=== PATIENT | female | born 1950 | race African-American/Black ===

== ENCOUNTER → 2017-02-09 | Outpatient (CLI) | payer MEDICARE, OTHER ==
[~2017-02-09] MED LIST: ANUSOL HC1 SUPP RECTAL; ASACOL HD800 MG ORAL; ASPIRIN500 MG ORAL; CANAASA1000 MG RECTAL; DILAUDID2 MG ORAL; DILAUDID4 MG ORAL; DILAUDID8 MG PO; DOK100 M1 ORAL; DOK100 M1 PO; IBUPROFEN200 MG ORAL; KLONOPIN0.5 MG ORAL; LACTULOSE20 GM/301 ORAL; METFORMIN HCL1000 M1 ORAL; METFORMIN HCL850 M1 ORAL; METHADONE HCL10 MG ORAL; METHADONE HCL10 MG PO; MIRALAX17 GM ORAL; MIRTAZAPINE15 MG ORAL; MS CONTIN30 MG ORAL; MSL400TEC ORAL; MULTIVITAMINS1 EAC2 ORAL; Mesalamine ORAL; NEURONTIN100 MG ORAL; NEURONTIN300 MG ORAL; NORCO 5-325 TA1 EACH ORAL; OMEGA-31000 M1 PO; OMEPRAZOLE20 M2 ORAL; PREDNISONE20 MG ORAL; PROTONIX40 MG ORAL; PURINETHOL50 MG ORAL; QUETIAPINE FUM100 MG ORAL; QUETIAPINE FUM200 MG ORAL; RESTORIL15 MG ORAL; SENOKOT8.6 MG ORAL; SEROQUEL XR200 MG ORAL; SEROQUEL100 MG ORAL; TYLENOL EXTRA500 MG ORAL; TYLENOL650 MG/20. ORAL; ULTRAM50 MG ORAL; UNOBMED
--- NOTE | 2017-02-09 16:14 | Diagnostic Imaging Report ---
Indications: Chronic severe low back and bilateral hip pain, worsening over the last 3 weeks Technique: Coronal and axial T1-weighted fast spin-echo and STIR sequences of the pelvis performed. Patient could not tolerate additional standard imaging sequences of the hips due to pain. Findings: Comparison: Bilateral hip radiographs 06/04/15 Bilateral hip joints again demonstrate severe circumferential narrowing with marginal osteophyte formation. Small right hip joint effusion is present. Both humeral heads demonstrate mild contour deformity, subchondral cyst formation, more prominent on the right. Diffuse marrow signal change is present throughout the right femoral head, neck, intertrochanteric region, heterogeneously hypointense on T1-weighted images and hyperintense on STIR images. Similar signal changes present in the opposing portions of right acetabulum. Small subchondral cysts are also present in both acetabula. Multilevel disc space narrowing with marginal osteophyte formation, subjacent degenerative marrow signal change in lumbar spine. No additional foci of marrow signal change demonstrated. Remaining soft tissue anatomy unremarkable. Urinary bladder distended. IMPRESSION: Severe bilateral hip arthropathy with prominent degenerative components. Circumferential narrowing suggests underlying inflammatory arthritis. Associated effusion, marrow edema on the right suggests acute flare of inflammatory arthritis versus less likely septic arthritis. Changes are atypical for avascular necrosis. Lumbar degenerative spondylosis.
--- NOTE | 2017-02-10 09:06 | Diagnostic Imaging Report ---
Indications: Chronic severe low back and bilateral hip pain, worsening over the last 3 weeks Technique: Sagittal STIR, sagittal and axial T1 weighted and T2 weighted fast spin echo sequences of the lumbar spine were performed without IV gadolinium administration. Findings: Comparison: None The L1-2 disc is normal in height and signal. No significant annular bulge/protrusion or marginal osteophyte formation. Facet joints and ligamenta flava are unremarkable. Spinal canal, lateral recesses and neural foramina are normal in caliber. The L2-3 disc has undergone further decrease in height and signal. Circumferential annular bulge again noted, indenting the ventral surface of thecal sac, mildly increased in prominence. Facet joints and ligamenta flava remain mildly hypertrophied.. Spinal canalnarrowing has mildly progressed, now 8-9 mm AP diameter. Mild narrowing of lateral recesses and neural foramina, left greater than right, mildly increased. The L3-4 disc remains severely decreased in height and signal with circumferential annular bulge and marginal osteophyte formation. Adjacent degenerative marrow signal change now T1 and T2 hyperintense, STIR hypointense.. . Facet joints and ligamenta flava min mildly hypertrophied.. Spinal canalnarrowed to 10 mm AP diameter unchanged. Mild narrowing of lateral recesses and neural foramina unchanged.. The L4-L5 disc space narrowing has mildly progressed, now mildly decreased T2 signal. Mild circumferential annular bulge unchanged.. Facet joints and ligamenta flava remain mildly hypertrophied.. Spinal canalremains normal in caliber. Mild lateral recess and neural foraminal narrowing, left greater than right, has mildly progressed.. The L5-S1 disc remains normal in height but has decreased in T2 signal. Mild posterior annular bulge unchanged.. Facet joints and ligamenta flava remain mildly hypertrophied.. Spinal canalremains normal in caliber. Mild lateral recess and neural foraminal narrowing unchanged.. Spinal cord ends at T12-L1. Conus medullaris, cauda equina, remainder of thecal sac contents intrinsically unremarkable. No intradural or extradural masses or fluid collections are demonstrated. The lumbar vertebrae are normal in configuration and marrow signal characteristics , aside from degenerative changes described above. No fracture, lytic destruction, or other acute process is demonstrated. Paraspinous soft tissues are unremarkable. IMPRESSION: Multilevel degenerative disc disease, facet and ligamentous hypertrophy as described in detail level by level above. Mild progression of disease at L2-3 and L4-5.
== END | disposition home or self-care (01) ==
LOC: MRI 09:52
DX: M54.5 Low back pain (principal); M47.896 Other spondylosis, lumbar region; M16.0 Bilateral primary osteoarthritis of hip; G89.29 Other chronic pain; M51.36 Other intervertebral disc degeneration, lumbar region
CPT/HCPCS: 72148; 72195

== ENCOUNTER 2017-03-08 10:04 | Outpatient (CLI) | payer MEDICARE, OTHER ==
--- NOTE | 2017-03-09 13:48 | Diagnostic Imaging Report ---
Indication: SCREEN Technique: Bilateral Craniocaudal and mediolateral oblique views were obtained. Comparison: 02/25/2015. Also outside studies from [facility] dated 04/26/2013 and 04/20/2013 Findings: The breasts are extremely dense, which decreases the sensitivity of mammography. No parenchymal asymmetry nor architectural distortion. There are benign calcifications on the left. No dominant masses nor suspicious clustered microcalcifications. No skin thickening nor nipple retraction. No axillary adenopathy. No significant interim change. Impression: No mammographic evidence of malignancy. Routine annual rescreening recommended. BI-RADS category 2-benign. Breast density BI-RADS type D-extremely dense breasts, which limits the sensitivity of mammography
== END 2017-03-08 12:04 | disposition home or self-care (01) ==
LOC: MAMMO 10:04
DX: Z12.31 Encounter for screening mammogram for malignant neoplasm of breast (principal)
CPT/HCPCS: 77067

== ENCOUNTER 2018-02-14 09:54 | Inpatient (IN) | payer MEDICARE, OTHER ==
[~2018-02-14] VITALS: Ht 170.2 cm; Wt 52.2 kg
[2018-02-14 10:10] VITALS: BP 110/70
--- NOTE | 2018-02-14 10:11 | Emergency Room Report ---
History of Present Illness General Chief Complaint: Multiple Trauma/Fall Source: Patient, EMS Present Illness HPI Patient is a 68-year-old female who presented after increased generalized weakness and falls. She reports having increased pain to her neck. She reports falling yesterday. Patient had been having increasing difficulty with ambulation and states she's not been able to ambulate for the past few days. Patient had prior history of inflammatory bowel disease as well as chronic pain. She reports having pain to both knees and her elbows after falling. Allergies: Coded Allergies: AMOXICILLIN (Verified Allergy, Unknown, RASH, 02/10/09) CODEINE (Verified Allergy, Unknown, RASH, 02/10/09) DIPHENHYDRAMINE (Verified Allergy, Unknown, 02/10/09) OXYCODONE (Verified Allergy, Unknown, RASH, 02/10/09) TETRACYCLINE (Verified Allergy, Unknown, 02/10/09) Patient History Past Medical History: see triage record Now: No Reviewed Nursing Documentation: PMH: Agreed; PSxH: Agreed Nursing Documentation-PMH Hx Cardiac Problems: No Hx Hypertension: No Hx Pacemaker: No Hx Asthma: No Hx COPD: No Hx Diabetes: Yes Hx Cancer: No Hx Gastrointestinal Problems: Yes - Ulcerative cilitis Hx Dialysis: No Hx Neurological Problems: Yes Hx Cerebrovascular Accident: No Hx Seizures: No Hx Peripheral Neuropathy: Yes - BLE Review of Systems All Other Systems: negative except mentioned in HPI Physical Exam Vital Signs Date Time Temp Pulse Resp B/P (MAP) Pulse Ox O2 Delivery O2 Flow Rate FiO2 02/14/18 10:00 97.8 116 16 110/70 97 Room Air 97.9 Sp02 EP Interpretation: reviewed, normal General Appearance: alert, cachetic, Chronically Ill Head: atraumatic ENT: normal ENT inspection, hearing grossly normal, normal voice Neck: normal inspection, full range of motion, supple, no bony tend Respiratory: normal inspection, lungs clear, normal breath sounds, no respiratory distress, no retraction, no wheezing Cardiovascular #1: regular rate, rhythm, no edema Gastrointestinal: normal inspection, normal bowel sounds, non tender, soft, no guarding, no hernia Genitourinary: no CVA tenderness Musculoskeletal: normal inspection, back normal, normal range of motion Neurologic: normal inspection, alert, oriented x3, responsive, community organization director III-XII nml as tested, speech normal, motor weakness Psychiatric: normal inspection, judgement/insight normal, mood/affect normal Skin: normal inspection, normal color, no rash Medical Decision Making Diagnostic Impression: Primary Impression: Weakness Additional Impressions: Dehydration Failure to thrive Multiple abrasions ER Course Patient presented for generalized weakness. Differential diagnosis included was not limited to anemia, urinary tract infection, electrolyte abnormality, hypothyroidism, myocardial infarction, myasthenia gravis, dehydration, among others. Because of complexity of patient's case laboratory testing and imaging studies were ordered. Laboratory testing was noted to have increased white blood count as well as evident of dehydration with elevated BUN and creatinine. Liver function tests were also abnormal. Patient was discussed with Dr. Ervin Davis for inpatient management due to covering physician. CT head and cervical spine showed no evidence of acute injury or hemorrage. Labs Test 02/14/18 10:15 02/14/18 10:25 02/14/18 11:05 White Blood Count 11.6 K/UL (4.8-10.8) Red Blood Count 4.14 M/UL (4.20-5.40) Hemoglobin 10.5 G/DL (12.0-16.0) Hematocrit 33.1 % (37.0-47.0) Mean Corpuscular Volume 80 FL (80-99) Mean Corpuscular Hemoglobin 25.3 PG (27.0-31.0) Mean Corpuscular Hemoglobin Concent 31.5 G/DL (32.0-36.0) Red Cell Distribution Width 15.3 % (11.6-14.8) Platelet Count 245 K/UL (150-450) Mean Platelet Volume 10.2 FL (6.5-10.1) Neutrophils (%) (Auto) 84.7 % (45.0-75.0) Lymphocytes (%) (Auto) 7.4 % (20.0-45.0) Monocytes (%) (Auto) 7.4 % (1.0-10.0) Eosinophils (%) (Auto) 0.0 % (0.0-3.0) Basophils (%) (Auto) 0.4 % (0.0-2.0) Prothrombin Time 10.2 SEC (9.30-11.50) Prothromb Time International Ratio 1.0 (0.9-1.1) Activated Partial Thromboplast Time 28 SEC (23-33) Sodium Level 138 MMOL/L (136-145) Potassium Level 4.0 MMOL/L (3.5-5.1) Chloride Level 108 MMOL/L (98-107) Carbon Dioxide Level 16 MMOL/L (21-32) Anion Gap 14 mmol/L (5-15) Blood Urea Nitrogen 67 mg/dL (7-18) Creatinine 1.6 MG/DL (0.55-1.30) Estimat Glomerular Filtration Rate 38.8 mL/min (>60) Glucose Level 169 MG/DL (74-106) Calcium Level 9.3 MG/DL (8.5-10.1) Total Bilirubin 0.3 MG/DL (0.2-1.0) Aspartate Amino Transf (AST/SGOT) 272 U/L (15-37) Alanine Aminotransferase (ALT/SGPT) 320 U/L (12-78) Alkaline Phosphatase 90 U/L (46-116) Troponin I 0.009 ng/mL (0.000-0.056) C-Reactive Protein, Quantitative 18.6 mg/dL (0.00-0.90) Total Protein 7.9 G/DL (6.4-8.2) Albumin 3.1 G/DL (3.4-5.0) Globulin 4.8 g/dL Albumin/Globulin Ratio 0.6 (1.0-2.7) Lipase 55 U/L (73-393) Thyroid Stimulating Hormone (TSH) 1.593 uiU/mL (0.358-3.740) Serum Alcohol < 3 mg/dL Urine Color Yellow Urine Appearance Slightly cloudy Urine pH 6 (4.5-8.0) Urine Specific [place] 1.020 (1.005-1.035) Urine Protein 2+ (NEGATIVE) Urine Glucose (UA) Negative (NEGATIVE) Urine Ketones Negative (NEGATIVE) Urine Occult Blood 5+ (NEGATIVE) Urine Nitrite Negative (NEGATIVE) Urine Bilirubin 1+ (NEGATIVE) Urine Ictotest Negative Urine Urobilinogen Normal MG/DL (0.0-1.0) Urine Leukocyte Esterase 1+ (NEGATIVE) Urine RBC 2-4 /HPF (0 - 2) Urine WBC 2-4 /HPF (0 - 2) Urine Squamous Epithelial Cells Few /LPF (NONE/OCC) Urine Amorphous Sediment Many /LPF (NONE) Urine Bacteria Few /HPF (NONE) Urine Opiates Screen Negative (NEGATIVE) Urine Barbiturates Screen Negative (NEGATIVE) Phencyclidine (PCP) Screen Negative (NEGATIVE) Urine Amphetamines Screen Negative (NEGATIVE) Urine Benzodiazepines Screen Negative (NEGATIVE) Urine Cocaine Screen Negative (NEGATIVE) Urine Marijuana (THC) Screen Negative (NEGATIVE) Last Vital Signs Date Time Temp Pulse Resp B/P (MAP) Pulse Ox O2 Delivery O2 Flow Rate FiO2 02/14/18 10:00 97.8 116 16 110/70 97 Room Air 97.9 Status: unchanged Disposition: ADMITTED INPATIENT Condition: Serious Anuel Spann MD Feb 14, 2018 10:11
[2018-02-14] MEDS ORDERED: Tetanus/Diptheria/Pertussis Vaccine 0.5ml Syr IM ONE (10:15)
[2018-02-14] MEDS ORDERED: Bacitracin Oint UD TOPIC ONE (10:15)
[2018-02-14 10:40] LABS: BASOPHILS % (AUTO) 0.4 % (0.0-2.0); HEMATOCRIT 33.1 % (37.0-47.0); HEMOGLOBIN 10.5 G/DL (12.0-16.0); LYMPHOCYTES % (AUTO) 7.4 % (20.0-45.0); MEAN CORPUSCULAR VOLUME 80 FL (80-99); MONOCYTES % (AUTO) 7.4 % (1.0-10.0); NEUTROPHILS % (AUTO) 84.7 % (45.0-75.0); PLATELET COUNT 245 K/UL (150-450); RED BLOOD COUNT 4.14 M/UL (4.20-5.40); RED CELL DISTRIBUTION WIDTH 15.3 % (11.6-14.8); WHITE BLOOD COUNT 11.6 K/UL (4.8-10.8)
[2018-02-14 11:01] LABS: ANION GAP 14 mmol/L (5-15); BLOOD UREA NITROGEN 67 mg/dL (7-18); CALCIUM 9.3 MG/DL (8.5-10.1); CARBON DIOXIDE 16 MMOL/L (21-32); CHLORIDE 108 MMOL/L (98-107); CREATININE 1.6 MG/DL (0.55-1.30); SODIUM 138 MMOL/L (136-145)
[2018-02-14 11:14] LABS: ALANINE AMINOTRANSFERASE 320 U/L (12-78); ALBUMIN 3.1 G/DL (3.4-5.0); ALBUMIN/GLOBULIN RATIO 0.6 (1.0-2.7); ALKALINE PHOSPHATASE 90 U/L (46-116); ASPARTATE AMINO TRANSFERASE 272 U/L (15-37); BILIRUBIN,TOTAL 0.3 MG/DL (0.2-1.0)
--- NOTE | 2018-02-14 11:28 | Diagnostic Imaging Report ---
Indication: Headache Technique: Contiguous 5 mm thick transaxial imaging of the head obtained in a Siemens Sensation [address] scanner. Soft tissue and bone windows generated. Automatic Exposure Control was utilized. Total Dose length Product (DLP): 1503.[address] Dose Index Volume (CTDIvol): 70.38,8 mGy Comparison: 06/15/2016 Findings: The size and configuration of the cortical sulci, basal cisterns, and ventricles are within normal limits for age. There is no mass effect, midline shift, or edema identified. There is no evidence of acute hemorrhage or abnormal intra-axial or extra-axial fluid collections. The bones and soft tissues are unremarkable. Impression: No mass effect, edema or acute bleed. The CT scanner at [facility] is accredited by the [employer] and the scans are performed using dose optimization techniques as appropriate to a performed exam including Automatic Exposure control.
--- NOTE | 2018-02-14 11:30 | Diagnostic Imaging Report ---
Indication: Neck pain. Technique: Continuous helical imaging of the cervical spine was obtained transaxially from the skull base to the upper thoracic spine. 2-D coronal and sagittal reformatted images were obtained. Automatic Exposure Control was utilized. Total Dose length Product (DLP): Refer to CT head mGycm CT Dose Index Volume (CTDIvol): Refer to CT head mGy Comparison: None Findings: There is no evidence of an acute fracture or malalignment. Atlantoaxial alignment appears normal. Height and configuration of the vertebral bodies and intervertebral discs are within normal limits. Uncovertebral joints and facets are unremarkable. There is no soft tissue swelling. There is mild partial opacification of the mastoids bilaterally. Impression: Negative cervical spine CT Mastoiditis The CT scanner at [facility] is accredited by the [employer] and the scans are performed using dose optimization techniques as appropriate to a performed exam including Automatic Exposure control.
--- NOTE | 2018-02-14 11:40 | Diagnostic Imaging Report ---
Indication: Chest pain Comparison: 06/15/2016 A single view chest radiograph was obtained. Findings: Cardiomediastinal appearance is within normal limits for age. Pulmonary vascularity is appropriate. The diaphragmatic contour is smooth and costophrenic angles are sharp. No pleural effusions are identified. The bones are unremarkable. Impression: No acute findings
[2018-02-14 11:41] LABS: APPEARANCE,URINE SLIGHTLY CLOUDY; BILIRUBIN, URINE 1+ (NEGATIVE); COLOR,URINE YELLOW; GLUCOSE, URINE (UA) NEGATIVE (NEGATIVE); KETONES,URINE NEGATIVE (NEGATIVE); LEUKOCYTE ESTERASE ,URINE 1+ (NEGATIVE); NITRITE,URINE NEGATIVE (NEGATIVE); PH,URINE 6 (4.5-8.0); PROTEIN,URINE 2+ (NEGATIVE); UROBILINOGEN,URINE NORMAL MG/DL (0.0-1.0)
[2018-02-14 12:30] VITALS: BP 117/67
[2018-02-14] MEDS ORDERED: XTAMPZA PO (12:59)
[2018-02-14 14:10] VITALS: BP 112/73
[2018-02-14] MEDS ORDERED: Morphine Sulfate 2mg/ml Inj IVP ONE (15:15)
[2018-02-14] MEDS ORDERED: Morphine Sulfate 2mg/ml Inj IVP PRN (17:45)
[2018-02-14] MEDS ORDERED: Lactulose 20gm/30ml UDC ORAL PRN (17:45)
[2018-02-14] MEDS: clonazePAM 0.5mg tab ORAL SCH (20:43)
[2018-02-14] MEDS: MS Contin 15mg tab ORAL SCH ×2 (20:44→20:52)
[2018-02-14] MEDS: Heparin 5000 units/ml inj SUBQ SCH ×2 (20:48→21:00)
[2018-02-15 07:51] LABS: ALANINE AMINOTRANSFERASE 293 U/L (12-78); ALBUMIN 3.1 G/DL (3.4-5.0); ALBUMIN/GLOBULIN RATIO 0.6 (1.0-2.7); ALKALINE PHOSPHATASE 97 U/L (46-116); ANION GAP 11 mmol/L (5-15); ASPARTATE AMINO TRANSFERASE 185 U/L (15-37); BILIRUBIN,TOTAL 0.4 MG/DL (0.2-1.0); BLOOD UREA NITROGEN 46 mg/dL (7-18); CALCIUM 9.7 MG/DL (8.5-10.1); CARBON DIOXIDE 20 MMOL/L (21-32); CHLORIDE 108 MMOL/L (98-107); CREATININE 1.1 MG/DL (0.55-1.30); SODIUM 139 MMOL/L (136-145)
[2018-02-15 08:00] VITALS: BP 114/64
[2018-02-15] MEDS: MS Contin 15mg tab ORAL SCH ×3 (09:00→20:37)
[2018-02-15] MEDS: Docusate 100mg cap ORAL SCH (09:10)
[2018-02-15] MEDS: clonazePAM 0.5mg tab ORAL SCH ×2 (09:11→20:37)
[2018-02-15] MEDS: Heparin 5000 units/ml inj SUBQ SCH ×2 (09:16→20:39)
--- NOTE | 2018-02-15 10:30 | History and Physical Report ---
DATE OF ADMISSION: 02/14/2018 REASON FOR ADMISSION: Multiple falls. HISTORY OF PRESENT ILLNESS: This is a 68-year-old female with chronic pain, generalized weakness, and underlying depression. The patient has multiple physicians that she sees. The patient does visit my office on a regular basis. The patient presents with increasing pain, recurrent falls, but no clear injury. The patient has difficulty with ambulation, although she does have a wheelchair. The patient does have pain diffusely. She is under the care of pain management. The patient now admitted for weakness, dehydration, failure to thrive, and multiple falls. PAST MEDICAL HISTORY: Notable for COPD, diabetes, ulcerative colitis, chronic pain syndrome, chronic neuropathy, history of psychiatric disorder, history of depression, opioid dependence, and insomnia. MEDICATIONS: Reviewed. ALLERGIES: Reviewed. SOCIAL HISTORY: Nonsmoker and nondrinker. The patient is retired and disabled. REVIEW OF SYSTEMS: Notable for diabetic neuropathy, depression, inflammatory bowel disease, psychiatric disorder, narcotic dependence, history of hypertension, and history of GI bleed remote. PHYSICAL EXAMINATION: GENERAL: A well-developed female, comfortable at present. VITAL SIGNS: Blood pressure 112/73, temperature 98, respiratory rate 15, and saturations 99%. HEENT: Negative. Extraocular movements are grossly intact. Oropharynx is moist. NECK: Supple. No adenopathy. LUNGS: Moderate breath sounds. No rhonchi. No wheezes. CARDIAC: Normal S1, S2 present. Regular rate and rhythm. Soft systolic murmur at left parasternal border. ABDOMEN: Soft, nontender, and nondistended. EXTREMITIES: No cyanosis, clubbing, or edema. Multiple abrasions noted. NEUROLOGIC: Grossly nonfocal. Fairly diffusely alert, slightly apprehensive. LABORATORY DATA: Reviewed. White count 8.6, hemoglobin 10, hematocrit 33, and platelets of 245. Chemistries noted and reviewed. Bicarbonate is 20, BUN 46, creatinine 1.1. Previously 67, 1.6. Liver enzymes are elevated. Albumin is 3.4. IMPRESSION: 1. Transaminitis. 2. Acute on chronic renal insufficiency. 3. Mild protein-calorie malnutrition. 4. Multiple falls. 5. Mild anemia. 6. Mild leukocytosis. 7. Hematuria. 8. Chronic pain syndrome. 9. Chronic opioid dependence. 10. Psychiatric disorder. RECOMMENDATION: Pain management. Resume home medication. Obtain pain evaluation. Obtain GI evaluation. Obtain psychiatric evaluation and renal evaluation. Hydrate clinically. Resume medication. Resume pain control and follow clinically for further changes and interventions and discharge once the patient is stable and improved. Bennett Siddiqui M.D. DR: CAREY JOB#: [id number] CC:
[2018-02-15 12:00] VITALS: BP 111/81
[2018-02-15 16:00] VITALS: BP 113/76
[2018-02-15] MEDS ORDERED: Isovue-300 100ml vial INJ PRN (17:00)
[2018-02-15 20:00] VITALS: BP 120/78
[2018-02-15 23:45] VITALS: BP 110/68
--- NOTE | 2018-02-16 00:37 | Cardiology Report ---
APPROVED REPORT EKG Measurement Heart [id number] Sinus tachycardia Possible Left atrial enlargement Right bundle branch block Abnormal ECG
[2018-02-16 04:00] VITALS: BP 109/69
--- NOTE | 2018-02-16 06:15 | Consultation ---
DATE OF CONSULTATION: 02/15/2018 NOTE: POOR AUDIO GASTROENTEROLOGY CONSULTATION CONSULTING PHYSICIAN: Sara Hebert M.D. CHIEF COMPLAINT: I was asked to see this patient by Dr. Bennett Siddiqui for evaluation of abdominal issues. HISTORY OF PRESENT ILLNESS: The patient is a 68-year-old woman with multiple medical problems, who was admitted to the hospital. She is somewhat of a poor historian and offers very little detailed history. She came to the hospital, but she felt weak overall. Review of her records show multiple references to inflammatory bowel disease including both ulcerative colitis as well as Crohn disease. However, she is not really on her regular medication nor has she had any regular workup. According to her records, she has had a colonoscopy in June 2014, and there were no significant findings on the pathology report that I can find. In the meantime, the patient appears to have been at some point on Asacol, but at this time she is off of all inflammatory bowel disease medications. She also at the same time used to be on laxatives for constipation. The patient denies any history of liver disease or alcoholism, but she also does have abnormal liver tests of unclear etiology. She denies any history of proctitis or postprandial pain. The patient does have a past history of drug dependence as recorded in her medical records. She appears to have been somewhat dehydrated on admission with elevated BUN and creatinine, but these have both since calmed down. PAST MEDICAL HISTORY: History of chronic pain syndrome, drug dependence, possible history of inflammatory bowel disease, although the details are vague and unclear and the patient is off medications, and failure to thrive. ALLERGIES: Reviewed and remarkable for amoxicillin, codeine, diphenhydramine, oxycodone, and tetracycline. FAMILY HISTORY: Negative and noncontributory. SOCIAL HISTORY: The patient lives in [facility]. She does not smoke or drink alcohol. REVIEW OF SYSTEMS: Otherwise negative. PHYSICAL EXAMINATION: GENERAL: Thin woman, seen in her room, in no distress. HEENT: Normocephalic and atraumatic. Sclerae anicteric. Oropharynx clear. NECK: Supple. CHEST: Clear to auscultation. CARDIOVASCULAR: Revealed a regular rate. ABDOMEN: Soft. Flat. Good bowel sounds. There is no organomegaly. There is some mild tenderness to palpation in the pelvis area. The patient had an old horizontal scar in that area, but she could not recall what kind of surgery she has had. EXTREMITIES: Revealed no edema. LABORATORY AND DIAGNOSTIC DATA: Laboratory data were noted. ASSESSMENT: This patient has two gastrointestinal issues. The first, she does have an abnormal liver tests, which are perhaps on the decline and the etiology is unclear. Hepatitis markers have been ordered, which is appropriate. I would also check her CPK to rule out rhabdomyolysis. In addition, the CT imaging of the abdomen were done with IV contrast to evaluate the liver for any pathological reasons. The patient's creatinine is now normalized and contrast should be safe. Further recommendations will be based on the findings of the above preliminary workup. The second issue is her vague history of inflammatory bowel disease. I am not so certain of her nature of inflammatory bowel disease since the patient is off medications and having regular bowel movements. I have offered an endoscopy and colonoscopy for the patient to evaluate her whole GI tract. However, she declined to have this procedure at this time, as the patient feels weak. She wants to remain off the medications for this condition and to reconsider as an outpatient at a later date when she feels stronger. RECOMMENDATIONS: 1. Follow laboratory parameters and exam. 2. Check CT scan. 3. Check hepatitis serologies. 4. Further rec after CT scan of abdomen and pelvis. 5. Out of bed and physical therapy. 6. Push oral intake. Thank you for asking me to participate in the care of this patient. Sara Hebert M.D. DR: CARMEN JOB#: [id number] CC: ROXANNA
--- NOTE | 2018-02-16 07:58 | General Progress Note ---
Assessment/Plan Assessment/Plan (1) Narcotic dependence (2) Crohn's disease (3) Rectal and abdominal pain (4) Lumbar radiculopathy (5) Lumbar spondylosis (6) Depression Pt will be changed on Morphine IV to 2mg Q4H PRN severe pain and Morphine ER to 30mg Q12H scheduled. We recommend pt to be evaluated by neurologist and Psychiatrist. Pt was d/w Dr. Mckeon and he concurred. Thank you for courtesy of this consultation. Subjective Date patient seen: Feb 16, 2018 Time patient seen: 07:15 - am Allergies: Coded Allergies: AMOXICILLIN (Verified Allergy, Unknown, RASH, 02/10/09) CODEINE (Verified Allergy, Unknown, RASH, 02/10/09) DIPHENHYDRAMINE (Verified Allergy, Unknown, 02/10/09) OXYCODONE (Verified Allergy, Unknown, RASH, 02/10/09) TETRACYCLINE (Verified Allergy, Unknown, 02/10/09) Subjective Constitutional: Denies: no symptoms, chills, diaphoresis, fever, malaise, weakness, other HEENT: Denies: no symptoms, eye pain, blurred vision, tearing, double vision, ear pain, ear discharge, nose pain, nose congestion, throat pain, throat swelling, mouth pain, mouth swelling, other Cardiovascular: Denies: no symptoms, chest pain, edema, irregular heart rate, lightheadedness, palpitations, syncope, other Respiratory: Denies: no symptoms, cough, orthopnea, shortness of breath, SOB with excertion, SOB at rest, sputum, stridor, wheezing, other Gastrointestinal/Abdominal: Denies: no symptoms, abdomen distended, abdominal pain, black stools, tarry stools, blood in stool, constipated, diarrhea, difficulty swallowing, nausea, poor appetite, poor fluid intake, rectal bleeding , vomiting, other Genitourinary: Denies: no symptoms, burning, discharge, frequency, flank pain, hematuria, incontinence, pain, urgency, other Neurologic/Psychiatric: Reports: tingling, weakness Endocrine: Denies: no symptoms, excessive sweating, flushing, intolerance to cold, intolerance to heat, increased hunger, increased thirst, increased urine, unexplained weight gain, unexplained weight loss, other Hematologic/Lymphatic: Denies: no symptoms, anemia, easy bleeding, easy bruising, other Subjective Pt is known from prior admission and in the office. At this time she was admitted under the care of Dr. Siddiqui due to increased weakness. She has continues back and rectal pain. Started on Morphine 15mg PO 1 tab Q12H and Morphine 0.5mgivp Q4H PRN. we were consulted so patient has adequate pain control while here in the hospital. Objective Last 24 Hour Vital Signs Date Time Temp Pulse Resp B/P (MAP) Pulse Ox O2 Delivery O2 Flow Rate FiO2 02/16/18 04:00 108 02/16/18 04:00 97.9 102 20 109/69 94 Room Air 97.9 02/16/18 00:00 104 02/15/18 23:45 98.2 102 18 110/68 96 Room Air 98.2 02/15/18 20:00 97.7 108 18 120/78 98 Room Air 97.7 02/15/18 20:00 102 02/15/18 16:00 98.0 115 18 113/76 96 Room Air 98.0 02/15/18 16:00 101 02/15/18 14:23 98.0 02/15/18 13:23 98.0 02/15/18 12:00 98.1 88 18 111/81 98 Room Air 98.1 02/15/18 12:00 74 02/15/18 08:00 84 02/15/18 08:00 98.5 86 18 114/64 98 Room Air 98.5 Intake and Output 02/15/18 02/16/18 19:00 07:00 Intake Total 360 ml 900 ml Output Total 300 ml Balance 60 ml 900 ml Intake Oral 360 ml IV Total 900 ml Output Urine Total 300 ml # Voids 1 2 # Bowel Movements 1 Laboratory Tests 02/16/18 06:27: Sodium Level [Pending], Potassium Level [Pending], Chloride Level [Pending], Carbon Dioxide Level [Pending], Blood Urea Nitrogen [Pending], Creatinine [ Pending], Estimat Glomerular Filtration Rate [Pending], Glucose Level [Pending] , Calcium Level [Pending], Total Bilirubin [Pending], Aspartate Amino Transf ( AST/SGOT) [Pending], Alanine Aminotransferase (ALT/SGPT) [Pending], Alkaline Phosphatase [Pending], Total Creatine Kinase [Pending], Total Protein [Pending] , Albumin [Pending], Globulin [Pending] Height (Feet): 5 Height (Inches): 7.00 Weight (Pounds): 115 Objective General Appearance: no apparent distress, alert EENT: PERRL/EOMI Neck: non-tender, supple Cardiovascular: normal rate, regular rhythm Respiratory/Chest: lungs clear, normal breath sounds Abdomen: non tender, soft Extremities: non-tender Edema: no edema noted Arm (L), no edema noted Arm (R), no edema noted Leg (L), no edema noted Leg (R), no edema noted Pedal (L), no edema noted Pedal (R), no edema noted Generalized Neurologic: alert, oriented Skin: warm/dry Sebastian Lea Feb 16, 2018 07:58
[2018-02-16 08:00] VITALS: BP 128/76
[2018-02-16] MEDS: MS Contin 15mg tab ORAL SCH ×2 (08:19→20:49)
[2018-02-16] MEDS: Docusate 100mg cap ORAL SCH (08:19)
[2018-02-16] MEDS: clonazePAM 0.5mg tab ORAL SCH ×2 (08:19→20:48)
[2018-02-16 08:21] LABS: ALANINE AMINOTRANSFERASE 199 U/L (12-78); ALBUMIN 2.4 G/DL (3.4-5.0); ALBUMIN/GLOBULIN RATIO 0.6 (1.0-2.7); ALKALINE PHOSPHATASE 74 U/L (46-116); ANION GAP 9 mmol/L (5-15); ASPARTATE AMINO TRANSFERASE 105 U/L (15-37); BILIRUBIN,TOTAL 0.3 MG/DL (0.2-1.0); BLOOD UREA NITROGEN 24 mg/dL (7-18); CALCIUM 8.1 MG/DL (8.5-10.1); CARBON DIOXIDE 20 MMOL/L (21-32); CHLORIDE 110 MMOL/L (98-107); CREATINE KINASE 2158 U/L (26-308); CREATININE 0.9 MG/DL (0.55-1.30); SODIUM 139 MMOL/L (136-145)
[2018-02-16] MEDS: Heparin 5000 units/ml inj SUBQ SCH ×2 (08:22→20:50)
[2018-02-16] MEDS: Morphine Sulfate 2mg/ml Inj IVP PRN ×3 (09:01→22:56)
--- NOTE | 2018-02-16 10:58 | General Progress Note ---
Assessment/Plan Assessment/Plan IMPRESSION: 1. Transaminitis. 2. Acute on chronic renal insufficiency. 3. Mild protein-calorie malnutrition. 4. Multiple falls. 5. Mild anemia. 6. Mild leukocytosis. 7. Hematuria. 8. Chronic pain syndrome. 9. Chronic opioid dependence. 10. Psychiatric disorder. PLAN care noted CT abdomen today pain better controlled hydration renal function better pain management PT neuro not available impression, plan, and exam edited and reviewed in detail care discussed with RN Subjective Allergies: Coded Allergies: AMOXICILLIN (Verified Allergy, Unknown, RASH, 02/10/09) CODEINE (Verified Allergy, Unknown, RASH, 02/10/09) DIPHENHYDRAMINE (Verified Allergy, Unknown, 02/10/09) OXYCODONE (Verified Allergy, Unknown, RASH, 02/10/09) TETRACYCLINE (Verified Allergy, Unknown, 02/10/09) Subjective in pain events noted appreciate consultants Objective Last 24 Hour Vital Signs Date Time Temp Pulse Resp B/P (MAP) Pulse Ox O2 Delivery O2 Flow Rate FiO2 02/16/18 08:00 103 02/16/18 08:00 97.3 104 18 128/76 97 Room Air 97.3 02/16/18 04:00 108 02/16/18 04:00 97.9 102 20 109/69 94 Room Air 97.9 02/16/18 00:00 104 02/15/18 23:45 98.2 102 18 110/68 96 Room Air 98.2 02/15/18 20:00 97.7 108 18 120/78 98 Room Air 97.7 02/15/18 20:00 102 02/15/18 16:00 98.0 115 18 113/76 96 Room Air 98.0 02/15/18 16:00 101 02/15/18 14:23 98.0 02/15/18 13:23 98.0 02/15/18 12:00 98.1 88 18 111/81 98 Room Air 98.1 02/15/18 12:00 74 Intake and Output 02/15/18 02/16/18 19:00 07:00 Intake Total 360 ml 900 ml Output Total 300 ml Balance 60 ml 900 ml Intake Oral 360 ml IV Total 900 ml Output Urine Total 300 ml # Voids 1 2 # Bowel Movements 1 Laboratory Tests 02/16/18 06:27: Sodium Level 139, Potassium Level 4.0, Chloride Level 110H, Carbon Dioxide Level 20L, Anion Gap 9, Blood Urea Nitrogen 24H, Creatinine 0.9, Estimat Glomerular Filtration Rate > 60, Glucose Level 123H, Calcium Level 8.1L, Total Bilirubin 0.3, Aspartate Amino Transf (AST/SGOT) 105H, Alanine Aminotransferase (ALT/SGPT) 199H, Alkaline Phosphatase 74, Total Creatine Kinase 2158H, Total Protein 6.2L, Albumin 2.4L, Globulin 3.8, Albumin/Globulin Ratio 0.6L Height (Feet): 5 Height (Inches): 7.00 Weight (Pounds): 115 Objective GENERAL: A well-developed female, comfortable at present. NAD NECK: Supple. No adenopathy. LUNGS: Moderate breath sounds. No rhonchi. No wheezes. CARDIAC: Normal S1, S2 present. Regular rate and rhythm. Soft systolic murmur at left parasternal border. ABDOMEN: Soft, nontender, and nondistended. EXTREMITIES: No cyanosis, clubbing, or edema. Multiple abrasions noted. NEUROLOGIC: Grossly nonfocal. Fairly diffusely alert, slightly apprehensive. Bennett Siddiqui MD Feb 16, 2018 10:58
[2018-02-16 11:34] VITALS: BP 119/78
--- NOTE | 2018-02-16 11:59 | Diagnostic Imaging Report ---
EXAM: CT Abdomen and Pelvis With Intravenous Contrast CLINICAL HISTORY: ABN LABS TECHNIQUE: Axial computed tomography images of the abdomen and pelvis with intravenous contrast. CTDI is 9.99 mGy and DLP is 483 mGy-cm. One or more of the following dose reduction techniques were used: automated exposure control, adjustment of the mA and/or kV according to patient size, use of iterative reconstruction technique. COMPARISON: CT of the abdomen and pelvis dated 02/22/14. FINDINGS: Lung bases: Subtle ground-glass densities at the periphery of the right middle lobe (series 3 image 4) are nonspecific, possibly representing subsegmental atelectasis versus mild infiltrate. ABDOMEN: Liver: Unremarkable. No mass. Gallbladder and bile ducts: Cholelithiasis. No gallbladder wall thickening. Persistent distention of the intrahepatic bile ducts, distention of the common bile duct to 8 mm diameter, and distention of the main pancreatic duct to 4 mm, suggesting a distal obstruction. Pancreas: See above. Spleen: Unremarkable. No splenomegaly. Adrenals: Unremarkable. No mass. Kidneys and ureters: Unremarkable. No solid mass. No hydronephrosis. Stomach and bowel: Mild diffuse colonic fecal retention may suggest constipation. No abnormally distended loops of small bowel. GE junction and stomach appear unremarkable. No mucosal thickening. PELVIS: Appendix: The appendix is not definitively identified. Bladder: Unremarkable. No mass. Reproductive: The uterus and ovaries are not visualized and may be surgically absent. ABDOMEN and PELVIS: Intraperitoneal space: Unremarkable. No free air. No significant fluid collection. Bones/joints: Severe degenerative changes in bilateral hips with joint space loss, marginal osteophytes, and subchondral cyst formation. No femoral head collapse. Multilevel degenerative changes throughout the visualized spine with disc space loss and endplate osteophytes. No acute fracture. No dislocation. Soft tissues: Diffuse subcutaneous soft tissue edema. Vasculature: Unremarkable. No abdominal aortic aneurysm. Lymph nodes: Unremarkable. No enlarged lymph nodes. IMPRESSION: 1. Cholelithiasis. No gallbladder wall thickening. 2. Persistent distention of the intrahepatic bile ducts, distention of the common bile duct to 8 mm diameter, and distention of the main pancreatic duct to 4 mm, suggesting a distal obstruction. This is not significantly changed compared to the CT from 02/22/14. Consider further evaluation with MRI/MRCP. 3. Mild diffuse colonic fecal retention may suggest constipation. 4. Severe degenerative changes in bilateral hips with joint space loss, marginal osteophytes, and subchondral cyst formation. No femoral head collapse. 5. Diffuse subcutaneous soft tissue edema. 6. Subtle ground-glass densities at the periphery of the right middle lobe (series 3 image 4) are nonspecific, possibly representing subsegmental atelectasis versus mild infiltrate.
[2018-02-16 15:46] VITALS: BP 115/70
--- NOTE | 2018-02-16 18:25 | General Progress Note ---
Assessment/Plan Assessment/Plan Assessment - Questionable history of IBD - gallstones - abnormal LFT and dilated ducts - R/o CBD stone - fecal loading seen on CT Recommendations - Follow LFT - Check MRCP - laxative - follow symptoms Subjective Allergies: Coded Allergies: AMOXICILLIN (Verified Allergy, Unknown, RASH, 02/10/09) CODEINE (Verified Allergy, Unknown, RASH, 02/10/09) DIPHENHYDRAMINE (Verified Allergy, Unknown, 02/10/09) OXYCODONE (Verified Allergy, Unknown, RASH, 02/10/09) TETRACYCLINE (Verified Allergy, Unknown, 02/10/09) Subjective feels OK tolerating PO had CT --> gallstones and dilated ducts Objective Last 24 Hour Vital Signs Date Time Temp Pulse Resp B/P (MAP) Pulse Ox O2 Delivery O2 Flow Rate FiO2 02/16/18 16:00 100 02/16/18 15:46 97.2 95 18 115/70 97 Room Air 97.2 02/16/18 12:00 94 02/16/18 11:34 97.0 89 18 119/78 96 Room Air 97.0 02/16/18 08:00 103 02/16/18 08:00 97.3 104 18 128/76 97 Room Air 97.3 02/16/18 04:00 108 02/16/18 04:00 97.9 102 20 109/69 94 Room Air 97.9 02/16/18 00:00 104 02/15/18 23:45 98.2 102 18 110/68 96 Room Air 98.2 02/15/18 20:00 97.7 108 18 120/78 98 Room Air 97.7 02/15/18 20:00 102 Intake and Output 02/15/18 02/16/18 19:00 07:00 Intake Total 360 ml 900 ml Output Total 300 ml Balance 60 ml 900 ml Intake Oral 360 ml IV Total 900 ml Output Urine Total 300 ml # Voids 1 2 # Bowel Movements 1 Laboratory Tests 02/16/18 06:27: Sodium Level 139, Potassium Level 4.0, Chloride Level 110H, Carbon Dioxide Level 20L, Anion Gap 9, Blood Urea Nitrogen 24H, Creatinine 0.9, Estimat Glomerular Filtration Rate > 60, Glucose Level 123H, Calcium Level 8.1L, Total Bilirubin 0.3, Aspartate Amino Transf (AST/SGOT) 105H, Alanine Aminotransferase (ALT/SGPT) 199H, Alkaline Phosphatase 74, Total Creatine Kinase 2158H, Total Protein 6.2L, Albumin 2.4L, Globulin 3.8, Albumin/Globulin Ratio 0.6L Height (Feet): 5 Height (Inches): 7.00 Weight (Pounds): 115 Objective Thin AA woman NCAT supple CTA RRR soft NT ND no edema non focal Sara Hebert MD Feb 16, 2018 18:25
[2018-02-16] MEDS ORDERED: Lactulose 20gm/30ml UDC ORAL SCH (18:30)
[2018-02-16 20:00] VITALS: BP 115/78
[2018-02-17] VITALS: BP 117/69
[2018-02-17 04:00] VITALS: BP 130/74
[2018-02-17] MEDS: Morphine Sulfate 2mg/ml Inj IVP PRN ×2 (04:04→09:41)
[2018-02-17 07:51] LABS: BASOPHILS % (AUTO) 1.1 % (0.0-2.0); EOSINOPHILS % (AUTO) 1.2 % (0.0-3.0); HEMATOCRIT 29.3 % (37.0-47.0); HEMOGLOBIN 9.7 G/DL (12.0-16.0); LYMPHOCYTES % (AUTO) 15.5 % (20.0-45.0); MEAN CORPUSCULAR VOLUME 80 FL (80-99); MONOCYTES % (AUTO) 5.3 % (1.0-10.0); NEUTROPHILS % (AUTO) 76.8 % (45.0-75.0); PLATELET COUNT 297 K/UL (150-450); RED BLOOD COUNT 3.65 M/UL (4.20-5.40); RED CELL DISTRIBUTION WIDTH 15.7 % (11.6-14.8); WHITE BLOOD COUNT 15.9 K/UL (4.8-10.8)
[2018-02-17 08:00] VITALS: BP 129/75
--- NOTE | 2018-02-17 08:01 | General Progress Note ---
Assessment/Plan Assessment/Plan (1) Narcotic dependence (2) Crohn's disease (3) Rectal and abdominal pain (4) Lumbar radiculopathy (5) Lumbar spondylosis (6) Depression Pt will be continued on Morphine IV and Morphine ER Pt was d/w Dr. Mckeon and he concurred. Subjective Date patient seen: Feb 17, 2018 Time patient seen: 07:15 - am Allergies: Coded Allergies: AMOXICILLIN (Verified Allergy, Unknown, RASH, 02/10/09) CODEINE (Verified Allergy, Unknown, RASH, 02/10/09) DIPHENHYDRAMINE (Verified Allergy, Unknown, 02/10/09) OXYCODONE (Verified Allergy, Unknown, RASH, 02/10/09) TETRACYCLINE (Verified Allergy, Unknown, 02/10/09) Subjective Constitutional: Denies: no symptoms, chills, diaphoresis, fever, malaise, weakness, other HEENT: Denies: no symptoms, eye pain, blurred vision, tearing, double vision, ear pain, ear discharge, nose pain, nose congestion, throat pain, throat swelling, mouth pain, mouth swelling, other Cardiovascular: Denies: no symptoms, chest pain, edema, irregular heart rate, lightheadedness, palpitations, syncope, other Respiratory: Denies: no symptoms, cough, orthopnea, shortness of breath, SOB with excertion, SOB at rest, sputum, stridor, wheezing, other Gastrointestinal/Abdominal: Denies: no symptoms, abdomen distended, abdominal pain, black stools, tarry stools, blood in stool, constipated, diarrhea, difficulty swallowing, nausea, poor appetite, poor fluid intake, rectal bleeding , vomiting, other Genitourinary: Denies: no symptoms, burning, discharge, frequency, flank pain, hematuria, incontinence, pain, urgency, other Neurologic/Psychiatric: Reports: tingling, weakness Endocrine: Denies: no symptoms, excessive sweating, flushing, intolerance to cold, intolerance to heat, increased hunger, increased thirst, increased urine, unexplained weight gain, unexplained weight loss, other Hematologic/Lymphatic: Denies: no symptoms, anemia, easy bleeding, easy bruising, other Subjective Pt continues to c/o severe pain which has been at a 10/10 at its worse. She has tolerated it on the Morphine ER and Morphine IV which reduces her pain to a 3/10. She has no new complaints at this time. Objective Last 24 Hour Vital Signs Date Time Temp Pulse Resp B/P (MAP) Pulse Ox O2 Delivery O2 Flow Rate FiO2 02/17/18 04:00 105 02/17/18 04:00 98.4 97 19 130/74 98 Room Air 98.4 02/17/18 00:00 97.2 91 20 117/69 96 Room Air 97.2 02/17/18 00:00 85 02/16/18 20:00 98.2 105 20 115/78 97 Room Air 98.2 02/16/18 20:00 101 02/16/18 16:00 100 02/16/18 15:46 97.2 95 18 115/70 97 Room Air 97.2 02/16/18 12:00 94 02/16/18 11:34 97.0 89 18 119/78 96 Room Air 97.0 02/16/18 08:00 103 02/16/18 08:00 97.3 104 18 128/76 97 Room Air 97.3 Intake and Output 02/16/18 02/17/18 19:00 07:00 Intake Total 1073 ml 1000 ml Output Total 900 ml Balance 173 ml 1000 ml Intake Oral 240 ml IV Total 833 ml 1000 ml Output Urine Total 900 ml # Voids 3 # Bowel Movements 2 4 Laboratory Tests 02/17/18 07:05: White Blood Count 15.9H, Red Blood Count 3.65L, Hemoglobin 9.7L, Hematocrit 29.3L, Mean Corpuscular Volume 80, Mean Corpuscular Hemoglobin 26.5L, Mean Corpuscular Hemoglobin Concent 33.0, Red Cell Distribution Width 15.7H, Platelet Count 297, Mean Platelet Volume 8.2, Neutrophils (%) (Auto) 76.8H, Lymphocytes (%) (Auto) 15.5L, Monocytes (%) (Auto) 5.3, Eosinophils (%) (Auto) 1.2, Basophils (%) (Auto) 1.1, Sodium Level [Pending], Potassium Level [Pending] , Chloride Level [Pending], Carbon Dioxide Level [Pending], Blood Urea Nitrogen [Pending], Creatinine [Pending], Estimat Glomerular Filtration Rate [Pending], Glucose Level [Pending], Calcium Level [Pending], Total Bilirubin [Pending], Aspartate Amino Transf (AST/SGOT) [Pending], Alanine Aminotransferase (ALT/SGPT ) [Pending], Alkaline Phosphatase [Pending], Total Protein [Pending], Albumin [ Pending], Globulin [Pending] Height (Feet): 5 Height (Inches): 7.00 Weight (Pounds): 115 Objective General Appearance: no apparent distress, alert EENT: PERRL/EOMI Neck: non-tender, supple Cardiovascular: normal rate, regular rhythm Respiratory/Chest: lungs clear, normal breath sounds Abdomen: non tender, soft Extremities: non-tender Edema: no edema noted Arm (L), no edema noted Arm (R), no edema noted Leg (L), no edema noted Leg (R), no edema noted Pedal (L), no edema noted Pedal (R), no edema noted Generalized Neurologic: alert, oriented Skin: warm/dry Sebastian Lea Feb 17, 2018 08:01
[2018-02-17 08:15] LABS: ALANINE AMINOTRANSFERASE 187 U/L (12-78); ALBUMIN 2.5 G/DL (3.4-5.0); ALBUMIN/GLOBULIN RATIO 0.6 (1.0-2.7); ALKALINE PHOSPHATASE 81 U/L (46-116); ANION GAP 8 mmol/L (5-15); ASPARTATE AMINO TRANSFERASE 83 U/L (15-37); BILIRUBIN,TOTAL 0.3 MG/DL (0.2-1.0); BLOOD UREA NITROGEN 14 mg/dL (7-18); CALCIUM 8.4 MG/DL (8.5-10.1); CARBON DIOXIDE 20 MMOL/L (21-32); CHLORIDE 110 MMOL/L (98-107); CREATININE 0.8 MG/DL (0.55-1.30); POTASSIUM 3.9 MMOL/L (3.5-5.1); SODIUM 138 MMOL/L (136-145)
[2018-02-17] MEDS: MS Contin 15mg tab ORAL SCH (08:20)
[2018-02-17] MEDS: Docusate 100mg cap ORAL SCH (08:20)
[2018-02-17] MEDS: clonazePAM 0.5mg tab ORAL SCH (08:20)
[2018-02-17] MEDS: Heparin 5000 units/ml inj SUBQ SCH (08:21)
--- NOTE | 2018-02-17 08:25 | General Progress Note ---
Assessment/Plan Assessment/Plan IMPRESSION: 1. Transaminitis. 2. Acute on chronic renal insufficiency. 3. Mild protein-calorie malnutrition. 4. Multiple falls. 5. Mild anemia. 6. Mild leukocytosis. 7. Hematuria. 8. Chronic pain syndrome. 9. Chronic opioid dependence. 10. Psychiatric disorder. 11. gallstones 12. intrahepatic dilatation 13. leukocytosis PLAN nontoxic; will call ID care noted MRI abdomen today pain better controlled and doing better laxatives hydration renal function noted pain management PT neuro not available hope to dc pending gi clearance impression, plan, and exam edited and reviewed in detail care discussed with RN Subjective Allergies: Coded Allergies: AMOXICILLIN (Verified Allergy, Unknown, RASH, 02/10/09) CODEINE (Verified Allergy, Unknown, RASH, 02/10/09) DIPHENHYDRAMINE (Verified Allergy, Unknown, 02/10/09) OXYCODONE (Verified Allergy, Unknown, RASH, 02/10/09) TETRACYCLINE (Verified Allergy, Unknown, 02/10/09) Subjective pain improved events noted and patient wants to go home appreciate consultants Objective Last 24 Hour Vital Signs Date Time Temp Pulse Resp B/P (MAP) Pulse Ox O2 Delivery O2 Flow Rate FiO2 02/17/18 08:20 97.2 02/17/18 08:00 97.2 97 18 129/75 98 Room Air 97.2 02/17/18 04:00 105 02/17/18 04:00 98.4 97 19 130/74 98 Room Air 98.4 02/17/18 00:00 97.2 91 20 117/69 96 Room Air 97.2 02/17/18 00:00 85 02/16/18 20:00 98.2 105 20 115/78 97 Room Air 98.2 02/16/18 20:00 101 02/16/18 16:00 100 02/16/18 15:46 97.2 95 18 115/70 97 Room Air 97.2 02/16/18 12:00 94 02/16/18 11:34 97.0 89 18 119/78 96 Room Air 97.0 Intake and Output 02/16/18 02/17/18 19:00 07:00 Intake Total 1073 ml 1000 ml Output Total 900 ml Balance 173 ml 1000 ml Intake Oral 240 ml IV Total 833 ml 1000 ml Output Urine Total 900 ml # Voids 3 # Bowel Movements 2 4 Laboratory Tests 02/17/18 07:05: White Blood Count 15.9H, Red Blood Count 3.65L, Hemoglobin 9.7L, Hematocrit 29.3L, Mean Corpuscular Volume 80, Mean Corpuscular Hemoglobin 26.5L, Mean Corpuscular Hemoglobin Concent 33.0, Red Cell Distribution Width 15.7H, Platelet Count 297, Mean Platelet Volume 8.2, Neutrophils (%) (Auto) 76.8H, Lymphocytes (%) (Auto) 15.5L, Monocytes (%) (Auto) 5.3, Eosinophils (%) (Auto) 1.2, Basophils (%) (Auto) 1.1, Sodium Level 138, Potassium Level 3.9, Chloride Level 110H, Carbon Dioxide Level 20L, Anion Gap 8, Blood Urea Nitrogen 14, Creatinine 0.8, Estimat Glomerular Filtration Rate > 60, Glucose Level 119H, Calcium Level 8.4L, Total Bilirubin 0.3, Aspartate Amino Transf (AST/SGOT) 83H, Alanine Aminotransferase (ALT/SGPT) 187H, Alkaline Phosphatase 81, Total Protein 6.4, Albumin 2.5L, Globulin 3.9, Albumin/Globulin Ratio 0.6L Height (Feet): 5 Height (Inches): 7.00 Weight (Pounds): 115 Objective GENERAL: A well-developed female, comfortable at present. NAD NECK: Supple. No adenopathy. LUNGS: Moderate breath sounds. No rhonchi. No wheezes. CARDIAC: Normal S1, S2 present. Regular rate and rhythm. Soft systolic murmur at left parasternal border. ABDOMEN: Soft, nontender, and nondistended. EXTREMITIES: No cyanosis, clubbing, or edema. Multiple abrasions noted. NEUROLOGIC: Grossly nonfocal. Fairly diffusely alert, slightly apprehensive. Bennett Siddiqui MD Feb 17, 2018 08:25
[2018-02-17 12:00] VITALS: BP 127/78
--- NOTE | 2018-02-17 22:54 | General Progress Note ---
Assessment/Plan Assessment/Plan Assessment - Questionable history of IBD - gallstones - abnormal LFT and dilated ducts - R/o CBD stone - fecal loading seen on CT Recommendations - If patient returns as outpatient then: - Follow LFT - Check MRCP - laxative prn - follow symptoms Subjective Allergies: Coded Allergies: AMOXICILLIN (Verified Allergy, Unknown, RASH, 02/10/09) CODEINE (Verified Allergy, Unknown, RASH, 02/10/09) DIPHENHYDRAMINE (Verified Allergy, Unknown, 02/10/09) OXYCODONE (Verified Allergy, Unknown, RASH, 02/10/09) TETRACYCLINE (Verified Allergy, Unknown, 02/10/09) Subjective saw patient earlier today patient unable to do MRI due to body pain advised re try in am with pre test Ativan agreed, but subsequently left AMA Objective Last 24 Hour Vital Signs Date Time Temp Pulse Resp B/P (MAP) Pulse Ox O2 Delivery O2 Flow Rate FiO2 02/17/18 12:00 108 02/17/18 12:00 97.6 107 18 127/78 96 Room Air 97.6 02/17/18 09:41 97.2 02/17/18 09:41 97.2 02/17/18 09:41 97.2 02/17/18 08:20 97.2 02/17/18 08:00 97.2 97 18 129/75 98 Room Air 97.2 02/17/18 08:00 88 02/17/18 04:00 105 02/17/18 04:00 98.4 97 19 130/74 98 Room Air 98.4 02/17/18 00:00 97.2 91 20 117/69 96 Room Air 97.2 02/17/18 00:00 85 Intake and Output 02/16/18 02/17/18 19:00 07:00 Intake Total 1073 ml 1000 ml Output Total 900 ml Balance 173 ml 1000 ml Intake Oral 240 ml IV Total 833 ml 1000 ml Output Urine Total 900 ml # Voids 3 # Bowel Movements 2 4 Laboratory Tests 02/17/18 07:05: White Blood Count 15.9H, Red Blood Count 3.65L, Hemoglobin 9.7L, Hematocrit 29.3L, Mean Corpuscular Volume 80, Mean Corpuscular Hemoglobin 26.5L, Mean Corpuscular Hemoglobin Concent 33.0, Red Cell Distribution Width 15.7H, Platelet Count 297, Mean Platelet Volume 8.2, Neutrophils (%) (Auto) 76.8H, Lymphocytes (%) (Auto) 15.5L, Monocytes (%) (Auto) 5.3, Eosinophils (%) (Auto) 1.2, Basophils (%) (Auto) 1.1, Sodium Level 138, Potassium Level 3.9, Chloride Level 110H, Carbon Dioxide Level 20L, Anion Gap 8, Blood Urea Nitrogen 14, Creatinine 0.8, Estimat Glomerular Filtration Rate > 60, Glucose Level 119H, Calcium Level 8.4L, Total Bilirubin 0.3, Aspartate Amino Transf (AST/SGOT) 83H, Alanine Aminotransferase (ALT/SGPT) 187H, Alkaline Phosphatase 81, Total Protein 6.4, Albumin 2.5L, Globulin 3.9, Albumin/Globulin Ratio 0.6L Height (Feet): 5 Height (Inches): 7.00 Weight (Pounds): 115 Objective Thin AA woman NCAT supple CTA RRR soft NT ND no edema non focal Sara Hebert MD Feb 17, 2018 22:54
--- NOTE | 2018-02-18 08:16 | Discharge Summary ---
Discharge Summary Discharge Summary _ DATE OF ADMISSION: 02/14/2018 DATE OF DISCHARGE: 02/17/2018 CONSULTANTS: Dr. Sara Mckeon BRIEF HOSPITAL COURSE: Patient is a 68-year-old female, with chronic pain, generalized weakness and underlying depression. The patient has multiple physicians that she sees. She presented at the emergency room via EMS due to increased pain, recurrent falls, but no clear injury. She had difficulty with ambulation although has a wheelchair. She reports of pain diffusely and is under the care of pain management. She reported falls and has been unable to ambulate for the past few days. She has prior history of inflammatory bowel disease, however is not on any medications. On evaluation at ED, vital signs were stable, blood work showed increased WBC 11.6, and evidence of dehydration BUN 67, creatinine 1.6. LFTs were elevated, AST 272, ALT 320. CRP was elevated to 18. Urine toxicology was negative. Serum alcohol was less than 3. She had a head CT that was negative for mass effect, edema or acute bleed. Chest x-ray without acute findings. She complained of neck pain. CT of the cervical spine was negative for acute fracture or malalignment. She was then admitted for evaluation of a transaminitis and renal insufficiency. She was given IV hydration. She was seen by crop production advisor for evaluation of transaminitis and inflammatory bowel disease. She was offered colonoscopy and endoscopy to evaluate the whole GI tract however she declined to have the procedure. Hepatitis panel was negative. Total CK was 2158. She was seen by pain management and was given morphine 2 mg IV prn severe pain and morphine ER 30 mg every 12 hours. The was no neurologist available. CT head was negative. She was given PT/OT. She had better pain control. Renal function eventually normalized. She had CT of the abdomen that showed cholelithiasis. There was persistent distention of the intrahepatic bile duct, distention of bile duct and distention of main pancreatic duct suggesting distal obstruction. She was ordered to undergo MRCP. Full treatment was not carried out as she left AMA. FINAL DIAGNOSES: Liver transaminitis with dilated ducts Acute on chronic renal insufficiency/kidney injury Mild protein calorie malnutrition Multiple falls Mild anemia Mild leukocytosis Hematorrhea Chronic pain syndrome Chronic opioid dependence Psychiatric disorder Gallstones Intrahepatic dilatation History of IBD Fecal loading seen on CT/colonic fecal retention Depression DISPOSITION: Patient left AMA. I have been assigned to dictate discharge summary on this account, and I was not involved in the patient's management. Jennifer Vale NP Feb 18, 2018 08:16
[2018-02-18] MEDS ORDERED: LORazepam Inj 2mg/ml 1ml IV PRN (09:00)
== END 2018-02-17 14:40 | disposition left against medical advice (07) | DRG 683 ==
LOC: EDBD 09:54 → EMR 10:18 → EDBEDREQ 10:31 → 2E 10:33 → EDBEDREQ 12:17
DX: N17.9 Acute kidney failure, unspecified (principal); E44.1 Mild protein-calorie malnutrition; F11.20 Opioid dependence, uncomplicated; Z68.1 Body mass index [BMI] 19.9 or less, adult; E86.0 Dehydration; R62.7 Adult failure to thrive; J44.9 Chronic obstructive pulmonary disease, unspecified; G89.4 Chronic pain syndrome; E11.40 Type 2 diabetes mellitus with diabetic neuropathy, unspecified; F32.9 Major depressive disorder, single episode, unspecified; R74.0 Nonspecific elevation of levels of transaminase and lactic acid dehydrogenase [LDH]; D64.9 Anemia, unspecified; M54.16 Radiculopathy, lumbar region; D72.829 Elevated white blood cell count, unspecified; K80.80 Other cholelithiasis without obstruction; I12.9 Hypertensive chronic kidney disease with stage 1 through stage 4 chronic kidney disease, or unspecified chronic kidney disease; E11.22 Type 2 diabetes mellitus with diabetic chronic kidney disease; N18.9 Chronic kidney disease, unspecified; K58.9 Irritable bowel syndrome, unspecified; K83.8 Other specified diseases of biliary tract; R31.9 Hematuria, unspecified; Z91.81 History of falling; Z53.21 Procedure and treatment not carried out due to patient leaving prior to being seen by health care provider
CPT/HCPCS: 36415; 70450; 71045; 72125; 74177; 80053; 80307; 80329; 81001; 82550; 83690; 84443; 84484; 85025; 85610; 85730; 86140; 86708; 86803; 87340; 87517; 90471; 90715; 93005; 99285

== ENCOUNTER 2018-03-21 10:11 | Inpatient (IN) | payer MEDICARE, OTHER ==
[~2018-03-21] VITALS: Ht 30.5 cm; Wt 0.5 kg
[~2018-03-21 10:11] MED LIST changes: +XTAMPZA PO
[2018-03-21] MEDS ORDERED: GABAPENTIN600 MG ORAL (12:51)
[2018-03-21] MEDS ORDERED: LACTULOSE10 GM/154 PO (12:51)
[2018-03-21] MEDS ORDERED: OXYCONTIN10 MG ORAL (12:51)
[2018-03-21] MEDS ORDERED: VITAMIN D250000 UNI1 ORAL (12:51)
[2018-03-21] MEDS ORDERED: METFORMIN HCL1000 M1 ORAL (12:51)
[2018-03-21] MEDS ORDERED: Isovue-300 100ml vial INJ PRN (13:00)
[2018-03-21] MEDS ORDERED: HYDROmorphone 1mg/ml Carpuject IVP PRN (13:15)
[2018-03-21] MEDS ORDERED: Isovue-370 150ml vial INJ PRN (13:45)
[2018-03-21] MEDS ORDERED: Vitamin D 50,000 units cap ORAL SCH (15:00)
[2018-03-21 15:12] LABS: ANION GAP 10 mmol/L (5-15); BLOOD UREA NITROGEN 19 mg/dL (7-18); CARBON DIOXIDE 19 MMOL/L (21-32); CHLORIDE 111 MMOL/L (98-107); CREATININE 1.2 MG/DL (0.55-1.30); SODIUM 140 MMOL/L (136-145)
[2018-03-21 15:58] VITALS: BP 136/77
[2018-03-21] MEDS: NovoLOG Insulin Flexpen SUBQ SCH ×2 (16:30→21:11)
--- NOTE | 2018-03-21 16:50 | Diagnostic Imaging Report ---
ndication: Chest pain and shortness of breath Technique: IV administration nonionic contrast. Spiral acquisitions obtained from the lung bases to the lung apices. Multiplanar and 3-D reconstructions were generated. Total dose length product 683.03 mGycm. CTDIvol(s) 20.42 mGy. Dose reduction achieved using automated exposure control Comparison: none Findings: The pulmonary arteries are well opacified. No intraluminal filling defects or other findings to suggest acute pulmonary embolus demonstrated. Pulmonary arteries are ectatic but not frankly dilated. There is mild right ventricular dilatation. Heart size is overall normal, however. No evidence of thoracic aortic aneurysm or dissection. Classic branching great neck vessels anatomy noted. The visualized visceral vessels origins are unremarkable. There is a 11 mm subpleural opacity in the periphery of the right middle lobe adjacent to the major fissure. There is mild hyperinflation, and a few tiny bullae are present. Scattered areas of atelectasis and/or scarring are seen in the lower lungs bilaterally. No dense consolidation demonstrated. No effusions. Prominent but not frankly enlarged nodes are seen in the right hilum. No mediastinal lymphadenopathy. The esophagus is unremarkable. The included portions of the thyroid are unremarkable. No axillary or chest wall mass or adenopathy. The subcutaneous and mediastinal fat is diffusely mildly edematous. The included upper abdominal viscera are unremarkable. The bones are unremarkable. Impression: No evidence of pulmonary embolus or other acute thoracic pathology 11 mm subpleural opacity in the right middle lobe. Most likely a focus of patchy consolidation or scarring. Neoplasm as etiology of this is not completely excludable, however, and 3 month follow-up CT should be considered Mild COPD changes Somewhat ectatic but not frankly dilated pulmonary arteries, raises the possibility it is not diagnostic for pulmonary arterial hypertension Mild diffuse edema of the subcutaneous and mediastinal fat The CT scanner at [facility] is accredited by the [employer] and the scans are performed using protocols designed to limit radiation exposure to as low as reasonably achievable to attain images of sufficient resolution adequate for diagnostic evaluation.
[2018-03-21 20:00] VITALS: BP 126/67
[2018-03-21] MEDS: clonazePAM 0.5mg tab ORAL SCH (21:07)
[2018-03-21] MEDS: oxyCODONE 5mg IR tab ORAL PRN (21:09)
[2018-03-21] MEDS: Heparin 5000 units/ml inj SUBQ SCH (21:11)
[2018-03-22] VITALS: BP 125/70
[2018-03-22 04:00] VITALS: BP 128/70
[2018-03-22] MEDS: NovoLOG Insulin Flexpen SUBQ SCH ×2 (05:47→11:30)
[2018-03-22] MEDS: oxyCODONE 5mg IR tab ORAL PRN ×2 (05:58→12:05)
[2018-03-22 08:00] VITALS: BP 143/84
[2018-03-22] MEDS: Docusate 100mg cap ORAL SCH ×2 (08:11→08:15)
[2018-03-22] MEDS: clonazePAM 0.5mg tab ORAL SCH (08:12)
--- NOTE | 2018-03-22 08:12 | General Progress Note ---
Subjective Allergies: Coded Allergies: AMOXICILLIN (Verified Allergy, Unknown, RASH, 02/10/09) CODEINE (Verified Allergy, Unknown, RASH, 02/10/09) DIPHENHYDRAMINE (Verified Allergy, Unknown, 02/10/09) TETRACYCLINE (Verified Allergy, Unknown, 02/10/09) Objective Last 24 Hour Vital Signs Date Time Temp Pulse Resp B/P (MAP) Pulse Ox O2 Delivery O2 Flow Rate FiO2 03/22/18 04:00 98.4 90 18 128/70 (89) 98 98.4 03/22/18 00:00 98.1 90 18 125/70 (88) 98 98.1 03/21/18 21:00 Room Air 03/21/18 20:00 98.6 92 19 126/67 (86) 97 98.6 03/21/18 15:58 98.2 90 18 136/77 (96) 98 98.2 03/21/18 13:09 Room Air Intake and Output 03/21/18 03/22/18 19:00 07:00 Intake Total 360 ml Balance 360 ml Intake Oral 360 ml # Voids 2 2 Laboratory Tests 03/21/18 14:30: D-Dimer 1.48H, Sodium Level 140, Potassium Level 4.0, Chloride Level 111H, Carbon Dioxide Level 19L, Anion Gap 10, Blood Urea Nitrogen 19H, Creatinine 1.2 , Estimat Glomerular Filtration Rate 53.9, Glucose Level 104, Calcium Level 9.0 Height (Feet): 5 Height (Inches): 7.00 Weight (Pounds): 110 Bennett Siddiqui MD Mar 22, 2018 08:12
--- NOTE | 2018-03-22 08:13 | History & Physical ---
History and Physical History & Physicial REASON FOR ADMISSION: acute pulmonary hypertension 68-year-old female with chronic pain, generalized weakness, and underlying depression. The patient does visit my office on a regular basis and was noted to have acute change in pulmonary hypertension. The patient has difficulty with ambulation, although she does have a wheelchair and has noted some worsening shortness of breath. The patient does have pain diffusely. She is under the care of pain management and requires daily opiods. The patient now admitted for evaluation of PE. patient without chest pain recent admission for gi work up was fairly negative PAST MEDICAL HISTORY: COPD, diabetes, ulcerative colitis, chronic pain syndrome, chronic neuropathy, history of psychiatric disorder, history of depression, opioid dependence, and insomnia. pulmonary hypertension; opiod dependency MEDICATIONS: Reviewed. ALLERGIES: Reviewed. SOCIAL HISTORY: Nonsmoker and nondrinker. The patient is retired and disabled. REVIEW OF SYSTEMS: chronic pain, difficulty ambulating, anxiety, diabetic neuropathy, depression, inflammatory bowel disease, psychiatric disorder, narcotic dependence, history of hypertension, and history of GI bleed remote. PHYSICAL EXAMINATION: GENERAL: A well-developed female, comfortable at present. VITAL SIGNS: see attached HEENT: Negative. Extraocular movements are grossly intact. Oropharynx is moist. NECK: Supple. No adenopathy. LUNGS: Moderate breath sounds. No rhonchi. No wheezes. CARDIAC: Normal S1, S2 present. notable for P2; Regular rate and rhythm. Soft systolic murmur at left parasternal border. ABDOMEN: Soft, nontender, and nondistended. no HSM EXTREMITIES: No cyanosis, clubbing, or edema. Multiple abrasions noted. NEUROLOGIC: Grossly nonfocal. Fairly diffusely alert, weak LABORATORY DATA: Labs Test 03/21/18 14:30 D-Dimer 1.48 mg/L FEU (0.00-0.49) Sodium Level 140 MMOL/L (136-145) Potassium Level 4.0 MMOL/L (3.5-5.1) Chloride Level 111 MMOL/L (98-107) Carbon Dioxide Level 19 MMOL/L (21-32) Anion Gap 10 mmol/L (5-15) Blood Urea Nitrogen 19 mg/dL (7-18) Creatinine 1.2 MG/DL (0.55-1.30) Estimat Glomerular Filtration Rate 53.9 mL/min (>60) Glucose Level 104 MG/DL (74-106) Calcium Level 9.0 MG/DL (8.5-10.1) IMPRESSION: 1. acute change in pulmonary hypertension; negative for PE 2. diffuse weakness 3. Mild protein-calorie malnutrition. 4. Multiple falls. 5. Mild anemia. 6. Mild leukocytosis. 7. Hematuria. 8. Chronic pain syndrome. 9. Chronic opioid dependence. 10. anxiety PLAN care noted reviewed CTPA will need follow up in 3 months obtain labs and venous US if negative, will pursue outpatient right heart cath as may need therapy denies cocaine use will obtain urine tox screen impression, plan, and exam edited and reviewed in detail care discussed with Bennett Cole MD Mar 22, 2018 08:13
[2018-03-22] MEDS: Heparin 5000 units/ml inj SUBQ SCH (09:00)
[2018-03-22] MEDS ORDERED: QUEtiapine 200mg tab ORAL SCH (09:00)
[2018-03-22 12:00] VITALS: BP 131/72
--- NOTE | 2018-03-22 17:08 | Diagnostic Imaging Report ---
Indication: Chronic neck pain. Technique: Sagittal T1 FLAIR PROPELLER, sagittal T2 PROPELLOR, sagittal STIR, axial T2 PROPELLER, axial 3D COSMIC ASPIR images were obtained through the cervical spine Comparison: CT of the cervical spine 02/14/2018; MRI of cervical spine 08/31/2008 Findings: Cervical lordosis is maintained. Vertebral body heights are within normal limits. Bone marrow signal is homogeneous. There is no evidence of acute fracture. Mild anterior bony spurring is noted from C4 through C6. No definite focal cord signal abnormality. At C1-C2: There is no significant central canal stenosis or definite focal abnormality. At C2-C3: No significant central canal stenosis or foraminal narrowing. At C3-C4: Mild disc bulge results in mild anterior indentation on the thecal sac. No significant central canal stenosis or foraminal narrowing at this level. At C4-C5: Disc bulge results in mild central canal stenosis and mild foraminal narrowing, left greater than right. At C5-C6: Small disc bulges indents the thecal sac anteriorly. No significant associated central canal stenosis or foraminal narrowing. At C6-C7: Small annular disc bulge with mild anterior indentation of the thecal sac. No significant associated central canal stenosis or foraminal narrowing. No definite abnormality is noted at the craniocervical junction. Imaged portions of the posterior fossa are grossly unremarkable. There are bilateral mastoid effusions, right greater than left. IMPRESSION: Overall mild discogenic degenerative disease of the cervical spine as above, most pronounced at C4-C5. Findings slightly progressed from prior exam of 08/31/2008. No focal cord signal abnormality. Bilateral mastoid effusions versus mastoiditis.
--- NOTE | 2018-03-23 12:20 | Discharge Summary ---
Discharge Summary Discharge Summary _ DATE OF ADMISSION: 03/21/2018 DATE OF DISCHARGE: 03/22/2018 REASON FOR ADMISSION: 68 years old female with past medical history significant for COPD, diabetes, ulcerative colitis, chronic pain syndrome, chronic neuropathy, history of psychiatric disorder, history of depression, opioid dependency, insomnia, pulmonary hypertension, was sent from the doctor's office due to noted acute changes in pulmonary hypertension. Patient had difficulty with ambulation . Patient noted worsening shortness of breath. Patient reported diffuse pain. Patient under care of pain specialist and required daily opioids. Patient was admitted for evaluation to rule out PE. . Patient denied chest pain. Patient had recent admission for GI workup, which was fairly negative. Patient admitted with diagnoses : acute changes in pulmonary hypertension rule out PE, diffuse weakness, multiply falls, chronic pain syndrome, opioid dependency, anxiety ,mild protein calorie malnutrition. HOSPITAL COURSE: Patient admitted . Noted elevated D-dimer -1.48. Venous duplex bilateral lower extremity revealed no evidence of acute DVT. CTA of the chest showed no evidence of pulmonary emboli or other acute thoracic pathology. Mild COPD changes noted. Somewhat ectatic but not frankly dilated pulmonary arteries suggestive for pulmonary arterial hypertension. 11 mm subpleural opacity in the right middle middle lobe. Most likely focus of patchy consolidation versus scarring, but neoplasm was not completely excludable , recommended follow-up CT scan in 3 months. MRI of cervical spine revealed overall mild discogenic degenerative disease of the cervical spine , most pronounced at C4-C5. Findings slightly progressed from the prior exam, but no focal cord signal abnormality noted. Supplemental oxygen was on board as needed along with pulmonary toilet. Pulse oximetry was stable on room air. Pain management was addressed, and pain was controlled. Home medications were resumed. Supportive care provided. Bowel regimen instituted. Blood sugar was managed with sliding scale of insulin. DVT prophylaxis provided. Since Venous duplex and CTA were both negative, patient was stable for discharge home with plan to pursue outpatient right heart catheterization. Patient was stable for discharge Due to rapid and unexpected improvement in patient's condition, the patient was discharged in one day. FINAL DIAGNOSES: Acute change in pulmonary hypertension ( negative for PE) Multiply falls Chronic pain syndrome Chronic opioid dependency Anxiety Mild protein calorie malnutrition Diffuse weakness DISCHARGE MEDICATIONS: See Medication Reconciliation list. DISCHARGE INSTRUCTIONS: Patient was discharged home with home health services to follow. Follow up with primary care provider I have been assigned to dictate discharge summary for this account. I was not involved in the patient's management. Vane Garza NP Mar 23, 2018 12:20
== END 2018-03-22 14:31 | disposition home health service (06) | DRG 315 ==
LOC: 4E 11:47
DX: I27.20 Pulmonary hypertension, unspecified (principal); F11.20 Opioid dependence, uncomplicated; E44.1 Mild protein-calorie malnutrition; K51.90 Ulcerative colitis, unspecified, without complications; Z68.1 Body mass index [BMI] 19.9 or less, adult; Z91.81 History of falling; G89.4 Chronic pain syndrome; F41.9 Anxiety disorder, unspecified; R53.1 Weakness; J44.9 Chronic obstructive pulmonary disease, unspecified; E11.9 Type 2 diabetes mellitus without complications; F99 Mental disorder, not otherwise specified; F32.9 Major depressive disorder, single episode, unspecified; D64.9 Anemia, unspecified; Z88.6 Allergy status to analgesic agent; Z88.1 Allergy status to other antibiotic agents; Z88.8 Allergy status to other drugs, medicaments and biological substances; G62.9 Polyneuropathy, unspecified
CPT/HCPCS: 36415; 71275; 72141; 80048; 82962; 85379; 87081; 93970; J1815

== ENCOUNTER 2019-01-09 10:58 | Inpatient (IN) | payer MEDICARE, OTHER ==
[~2019-01-09] VITALS: Ht 170.2 cm; Wt 58.5 kg
[~2019-01-09 10:58] MED LIST changes: +GABAPENTIN600 MG ORAL; +LACTULOSE10 GM/154 PO; +OXYCONTIN10 MG ORAL; +VITAMIN D250000 UNI1 ORAL
[2019-01-09] MEDS ORDERED: dilaudid PO (11:02)
[2019-01-09 11:22] VITALS: BP 119/78
[2019-01-09] MEDS ORDERED: Ketorolac 30mg Inj IV ONE (11:30)
[2019-01-09] MEDS ORDERED: Morphine Sulfate 4mg/ml Inj (IV USE ONLY) IVP ONE (11:30)
--- NOTE | 2019-01-09 11:45 | NUR ---
ED Nurse Note: pt medicated and able to tolerate well, blood drawn and sent to lab,m pt unable to give urine for now. iv started. pt medicated and able to tolerate.
[2019-01-09 12:04] LABS: BASOPHILS % (AUTO) 1.1 % (0.0-2.0); EOSINOPHILS % (AUTO) 1.3 % (0.0-3.0); HEMATOCRIT 39.8 % (37.0-47.0); HEMOGLOBIN 12.8 G/DL (12.0-16.0); LYMPHOCYTES % (AUTO) 21.5 % (20.0-45.0); MEAN CORPUSCULAR VOLUME 83 FL (80-99); MONOCYTES % (AUTO) 6.2 % (1.0-10.0); NEUTROPHILS % (AUTO) 69.9 % (45.0-75.0); PLATELET COUNT 203 K/UL (150-450); RED BLOOD COUNT 4.82 M/UL (4.20-5.40); RED CELL DISTRIBUTION WIDTH 15.6 % (11.6-14.8); WHITE BLOOD COUNT 9.1 K/UL (4.8-10.8)
[2019-01-09 12:08] LABS: ANION GAP 11 mmol/L (5-15); BLOOD UREA NITROGEN 23 mg/dL (7-18); CALCIUM 9.5 MG/DL (8.5-10.1); CARBON DIOXIDE 22 MMOL/L (21-32); CHLORIDE 107 MMOL/L (98-107); CREATININE 1.1 MG/DL (0.55-1.30); SODIUM 140 MMOL/L (136-145)
[2019-01-09 12:10] LABS: INR 0.9 (0.9-1.1)
--- NOTE | 2019-01-09 12:10 | NUR ---
ED Nurse Note: pt stated that the pain got better from 10/10 to 6/10. pt stated the is worsen when changing position. pt asked for sandwich. ermd made aware, food was given and pt able to tolerate well. will continue to monitor.
[2019-01-09 12:13] LABS: ALANINE AMINOTRANSFERASE 24 U/L (12-78); ALKALINE PHOSPHATASE 129 U/L (46-116); ASPARTATE AMINO TRANSFERASE 15 U/L (15-37); BILIRUBIN,TOTAL 0.2 MG/DL (0.2-1.0)
[2019-01-09 13:01] LABS: APPEARANCE,URINE CLOUDY; BILIRUBIN, URINE NEGATIVE (NEGATIVE); GLUCOSE, URINE (UA) NEGATIVE (NEGATIVE); KETONES,URINE NEGATIVE (NEGATIVE); LEUKOCYTE ESTERASE ,URINE 1+ (NEGATIVE); NITRITE,URINE NEGATIVE (NEGATIVE); PH,URINE 5 (4.5-8.0); PROTEIN,URINE 1+ (NEGATIVE); UROBILINOGEN,URINE NORMAL MG/DL (0.0-1.0)
[2019-01-09 13:14] LABS: COLOR,URINE YELLOW
--- NOTE | 2019-01-09 13:26 | NUR ---
ED Nurse Note: pt is going to be admited in the hospital, pt didnt allow rn to check on her belongings.
[2019-01-09 14:00] VITALS: BP 118/78
--- NOTE | 2019-01-09 14:18 | Emergency Room Report ---
History of Present Illness General Chief Complaint: Back Pain-No Injury Source: Patient, EMS Present Illness HPI Patient brought in by EMS. She called paramedics because she is unable to ambulate. She is unable to ambulate because she has increased back pain at this time. She was given a prescription for Dilaudid 2 mg but stopped taking them because they stopped working for her. She claims that she's has vomiting and is unable to keep down medication at this time. The sciatica involves both legs but she has more right leg weakness at this time that has been present for many months. She states her doctor wants to perform back surgery at this time. She denies incontinence. She's had loose stools. No fevers or chills. No blood thinners. No oncologic problems. No IV drug abuse. Feels anxious as she cannot control the pain. Pain is rated 10/10 bilaterally in her lower back and lower extremities radiation. It is constant and worse when she moves about. She denies dysuria. Patient's been seen here multiple times. Last presentation she was admitted to the hospital for intractable back pain. Transfer to another facility. She was admitted March 2018 with these discharge diagnosis: Acute change in pulmonary hypertension ( negative for PE) Multiply falls Chronic pain syndrome Chronic opioid dependency Anxiety Mild protein calorie malnutrition Diffuse weakness Allergies: Coded Allergies: AMOXICILLIN (Verified Allergy, Unknown, RASH, 02/10/09) CODEINE (Verified Allergy, Unknown, RASH, 02/10/09) DIPHENHYDRAMINE (Verified Allergy, Unknown, 02/10/09) PENICILLINS (Unverified Allergy, Unknown, 12/26/18) TETRACYCLINE (Verified Allergy, Unknown, 02/10/09) Patient History Past Medical History: see triage record, old chart reviewed Social History: Reports: smoking, drug use; Denies: alcohol use Social History Narrative from home by self Last Menstrual Period: na Reviewed Nursing Documentation: PMH: Agreed; PSxH: Agreed Nursing Documentation-PMH Past Medical History: No History, Except For Hx Cardiac Problems: No Hx Hypertension: No Hx Pacemaker: No Hx Asthma: No Hx COPD: No Hx Diabetes: Yes Hx Cancer: No Hx Gastrointestinal Problems: Yes Hx Dialysis: No History Of Psychiatric Problem: Yes - bipolar Hx Neurological Problems: Yes Hx Cerebrovascular Accident: No Hx Seizures: No Hx Peripheral Neuropathy: Yes Hx Weakness: Yes Review of Systems All Other Systems: negative except mentioned in HPI Physical Exam Vital Signs Date Time Temp Pulse Resp B/P (MAP) Pulse Ox O2 Delivery O2 Flow Rate FiO2 01/09/19 10:53 98.2 102 20 119/78 (92) 98 Room Air Sp02 EP Interpretation: reviewed, normal General Appearance: alert, GCS 15, moderate distress - Due to pain and anxiety Head: normocephalic Eyes: bilateral eye normal inspection, bilateral eye PERRL, bilateral eye EOMI ENT: moist mucus membranes Neck: supple Respiratory: lungs clear, normal breath sounds Cardiovascular #1: regular rate, rhythm Cardiovascular #2: 2+ radial (R) Gastrointestinal: normal inspection, normal bowel sounds, non tender, no mass, non-distended Musculoskeletal: normal range of motion, other - Straight leg raise positive bilaterally increasing lumbar pain radiating to her legs slightly worse on the right side, tender - Lumbar area with paraspinous spasms Neurologic: alert, oriented x3, DTRs symmetric, sensory intact, speech normal, motor weakness - Right leg Psychiatric: depressed affect, anxious Reflexes: 1+ knee (R), 1+ knee (L); 0 ankle (R), 0 ankle (L) Skin: normal inspection, warm/dry Medical Decision Making Diagnostic Impression: Primary Impression: Intractable back pain Additional Impressions: Sciatica Qualified Codes: M54.31 - Sciatica, right side; M54.32 - Sciatica, left side Opiate dependence Qualified Codes: F11.288 - Opioid dependence with other opioid-induced disorder Vomiting Qualified Codes: R11.2 - Nausea with vomiting, unspecified ER Course Patient presents with inability to ambulate due to increase in her back pain. Differential includes exacerbation of chronic pain, worsening sciatica, opiate dependence amongst others. Due to the lack of red flag signs and symptoms imaging is not indicated however laboratory evaluation will be performed. Occult infection needs to be excluded. Patient will be treated with analgesia and antiemetic. Labs unremarkable. Of significance urinalysis is positive for opiates however urinalysis was obtained after opiates were administered here. Patient's pain is controlled and she is sleeping however she is still unable to ambulate at this time. Patient admitted for intractable back pain to medical floor. Social service consult is requested as there should be consideration for discharge to rehabilitation facility. Laboratory Tests Test 01/09/19 11:30 01/09/19 12:40 White Blood Count 9.1 K/UL (4.8-10.8) Red Blood Count 4.82 M/UL (4.20-5.40) Hemoglobin 12.8 G/DL (12.0-16.0) Hematocrit 39.8 % (37.0-47.0) Mean Corpuscular Volume 83 FL (80-99) Mean Corpuscular Hemoglobin 26.5 PG (27.0-31.0) L Mean Corpuscular Hemoglobin Concent 32.1 G/DL (32.0-36.0) Red Cell Distribution Width 15.6 % (11.6-14.8) H Platelet Count 203 K/UL (150-450) Mean Platelet Volume 9.6 FL (6.5-10.1) Neutrophils (%) (Auto) 69.9 % (45.0-75.0) Lymphocytes (%) (Auto) 21.5 % (20.0-45.0) Monocytes (%) (Auto) 6.2 % (1.0-10.0) Eosinophils (%) (Auto) 1.3 % (0.0-3.0) Basophils (%) (Auto) 1.1 % (0.0-2.0) Prothrombin Time 10.0 SEC (9.30-11.50) Prothrombin Time INR 0.9 (0.9-1.1) PTT 30 SEC (23-33) Sodium Level 140 MMOL/L (136-145) Potassium Level 4.0 MMOL/L (3.5-5.1) Chloride Level 107 MMOL/L (98-107) Carbon Dioxide Level 22 MMOL/L (21-32) Anion Gap 11 mmol/L (5-15) Blood Urea Nitrogen 23 mg/dL (7-18) H Creatinine 1.1 MG/DL (0.55-1.30) Estimate Glomerular Filtration Rate 59.8 mL/min (>60) Glucose Level 100 MG/DL (74-106) Calcium Level 9.5 MG/DL (8.5-10.1) Total Bilirubin 0.2 MG/DL (0.2-1.0) Aspartate Amino Transferase (AST) 15 U/L (15-37) Alanine Aminotransferase (ALT) 24 U/L (12-78) Alkaline Phosphatase 129 U/L (46-116) H Total Protein 7.9 G/DL (6.4-8.2) Albumin 4.0 G/DL (3.4-5.0) Globulin 3.9 g/dL Albumin/Globulin Ratio 1.0 (1.0-2.7) Urine Color Yellow Urine Appearance Cloudy Urine pH 5 (4.5-8.0) Urine Specific [place] 1.025 (1.005-1.035) Urine Protein 1+ (NEGATIVE) H Urine Glucose (UA) Negative (NEGATIVE) Urine Ketones Negative (NEGATIVE) Urine Blood 1+ (NEGATIVE) H Urine Nitrite Negative (NEGATIVE) Urine Bilirubin Negative (NEGATIVE) Urine Urobilinogen Normal MG/DL (0.0-1.0) Urine Leukocyte Esterase 1+ (NEGATIVE) H Urine RBC 0-2 /HPF (0 - 2) Urine WBC 2-4 /HPF (0 - 2) Urine Squamous Epithelial Cells Few /LPF (NONE/OCC) Urine Bacteria Moderate /HPF (NONE) H Urine Opiates Screen Positive (NEGATIVE) H Urine Barbiturates Screen Negative (NEGATIVE) Phencyclidine (PCP) Screen Negative (NEGATIVE) Urine Amphetamines Screen Negative (NEGATIVE) Urine Benzodiazepines Screen Negative (NEGATIVE) Urine Cocaine Screen Negative (NEGATIVE) Urine Marijuana (THC) Screen Negative (NEGATIVE) EKG Diagnostic Results Rate: normal Rhythm: NSR ST Segments: no acute changes - RBBB LAE Rhythm Strip Diag. Results EP Interpretation: yes Rhythm: NSR, no PVC's, no ectopy Last Vital Signs Date Time Temp Pulse Resp B/P (MAP) Pulse Ox O2 Delivery O2 Flow Rate FiO2 01/09/19 17:09 Room Air 01/09/19 16:12 98.6 91 18 129/80 (96) 96 Status: improved Disposition: ADMITTED INPATIENT Condition: Serious Referrals: Bennett Siddiqui MD (PCP) Kiko Arguello MD January 09, 2019 14:18
--- NOTE | 2019-01-09 15:00 | NUR ---
ED Nurse Note: PT IS ADMITTED IN THE HOSPITAL, REPORT GIVEN TO SHARONA MELENDEZ
--- NOTE | 2019-01-09 15:01 | NUR ---
ED Nurse Note: Pt was transfered to the floor med surg 410 with stable vs and with all belongings
[2019-01-09 16:12] VITALS: BP 129/80
--- NOTE | 2019-01-09 16:15 | NUR ---
CHARGE NURSE NOTE: Received patient from ER. Pt states that her white long sleeve top is missing. According to ER nurse Teagan, pt refused to check her belongings. Vital WNL, exept of pain 8 (back pain). was called for admit.orders.
--- NOTE | 2019-01-09 16:17 | NUR ---
NURSE NOTES: Patient room 409 bed 1,patient is alert and oriented, ,respirations are unlabored. DR Siddiqui notified of patient room number,waiting for call back for orders.
[2019-01-09] MEDS ORDERED: HYDROmorphone 1mg/ml Carpuject IVP PRN (16:30)
[2019-01-09] MEDS: NovoLOG Insulin Flexpen SUBQ SCH ×2 (17:05→20:34)
--- NOTE | 2019-01-09 19:30 | NUR ---
HAND-OFF: Report given to Kaylie MELENDEZ.
--- NOTE | 2019-01-09 19:30 | NUR ---
NURSE NOTES: Patient resting at this time,patient state pain has decreased.Bed alarm is on,call light within reach.
--- NOTE | 2019-01-09 19:40 | NUR ---
NURSE NOTES: patient received. patient in no acute distress at this time. patient complains of pain at this time. see emar. patient awake alert and oriented x4. IV intact patent and asymptomatic. patient bed alarm on. fall risk red arm band on. bed in lowest position and locked. call light within reach. will continue to monitor.
[2019-01-09 20:00] VITALS: BP 137/67
[2019-01-09] MEDS: clonazePAM 0.5mg tab ORAL SCH (20:32)
[2019-01-09] MEDS: QUEtiapine 200mg tab ORAL SCH (20:32)
[2019-01-09] MEDS: Heparin 5000 units/ml inj SUBQ SCH (20:33)
[2019-01-10] VITALS: BP 132/73
[2019-01-10 04:00] VITALS: BP 115/67
[2019-01-10] MEDS: NovoLOG Insulin Flexpen SUBQ SCH ×4 (06:26→21:00)
--- NOTE | 2019-01-10 07:29 | NUR ---
HAND-OFF: Report given to darvin matthew patietn is stable.
--- NOTE | 2019-01-10 07:36 | NUR ---
NURSE NOTES: Patient is alert and oriented,respirations unlabored,patient state joann is having some back pain,especially when she moves,patient requesting pain medication,will give as ordered.Bed alarm is on,call light within reach.
--- NOTE | 2019-01-10 08:00 | General Progress Note ---
Subjective Allergies: Coded Allergies: AMOXICILLIN (Verified Allergy, Unknown, RASH, 02/10/09) CODEINE (Verified Allergy, Unknown, RASH, 02/10/09) DIPHENHYDRAMINE (Verified Allergy, Unknown, 02/10/09) PENICILLINS (Unverified Allergy, Unknown, 12/26/18) TETRACYCLINE (Verified Allergy, Unknown, 02/10/09) Objective Last 24 Hour Vital Signs Date Time Temp Pulse Resp B/P (MAP) Pulse Ox O2 Delivery O2 Flow Rate FiO2 01/10/19 04:00 98.5 104 16 115/67 (83) 93 01/10/19 00:00 98.3 93 16 132/73 (92) 100 01/09/19 21:00 Room Air 01/09/19 20:00 98.1 81 14 137/67 (90) 100 01/09/19 17:09 Room Air 01/09/19 16:12 98.6 91 18 129/80 (96) 96 01/09/19 15:01 98.2 90 18 118/78 98 Room Air 01/09/19 14:00 98.2 90 18 118/78 98 Room Air 01/09/19 12:09 98.2 01/09/19 12:09 98.2 01/09/19 11:22 98.2 100 20 119/78 98 Room Air 01/09/19 10:53 98.2 102 20 119/78 (92) 98 Room Air Intake and Output 01/09/19 01/10/19 19:00 07:00 Intake Total 2240 ml 300 ml Balance 2240 ml 300 ml Intake Oral 240 ml 300 ml IV Total 2000 ml # Voids 2 Laboratory Tests 01/09/19 11:30: White Blood Count 9.1, Red Blood Count 4.82, Hemoglobin 12.8, Hematocrit 39.8, Mean Corpuscular Volume 83, Mean Corpuscular Hemoglobin 26.5L, Mean Corpuscular Hemoglobin Concent 32.1, Red Cell Distribution Width 15.6H, Platelet Count 203, Mean Platelet Volume 9.6, Neutrophils (%) (Auto) 69.9, Lymphocytes (%) (Auto) 21.5, Monocytes (%) (Auto) 6.2, Eosinophils (%) (Auto) 1.3, Basophils (%) (Auto ) 1.1, Prothrombin Time 10.0, Prothromb Time International Ratio 0.9, Activated Partial Thromboplast Time 30, Sodium Level 140, Potassium Level 4.0, Chloride Level 107, Carbon Dioxide Level 22, Anion Gap 11, Blood Urea Nitrogen 23H, Creatinine 1.1, Estimat Glomerular Filtration Rate 59.8, Glucose Level 100, Calcium Level 9.5, Total Bilirubin 0.2, Aspartate Amino Transf (AST/SGOT) 15, Alanine Aminotransferase (ALT/SGPT) 24, Alkaline Phosphatase 129H, Total Protein 7.9, Albumin 4.0, Globulin 3.9, Albumin/Globulin Ratio 1.0 01/09/19 12:40: Urine Color Yellow, Urine Appearance Cloudy, Urine pH 5, Urine Specific [place] 1.025, Urine Protein 1+H, Urine Glucose (UA) Negative, Urine Ketones Negative, Urine Blood 1+H, Urine Nitrite Negative, Urine Bilirubin Negative, Urine Urobilinogen Normal, Urine Leukocyte Esterase 1+H, Urine RBC 0-2, Urine WBC 2-4 , Urine Squamous Epithelial Cells Few, Urine Bacteria ModerateH, Urine Opiates Screen PositiveH, Urine Barbiturates Screen Negative, Phencyclidine (PCP) Screen Negative, Urine Amphetamines Screen Negative, Urine Benzodiazepines Screen Negative, Urine Cocaine Screen Negative, Urine Marijuana (THC) Screen Negative Height (Feet): 5 Height (Inches): 7.00 Weight (Pounds): 129 Bennett Siddiqui MD January 10, 2019 08:00
--- NOTE | 2019-01-10 08:00 | History & Physical ---
History and Physical History & Physicial HISTORY OF PRESENT ILLNESS: 68-year-old female admitted through the emergency room with intractable pain. The patient has been treated by another pain management doctor and notes that she has recently seen a spinal surgeon and noted to have severe spinal stenosis and would require surgery. Patient recently admitted and discharged for similar reasons 2 weeks ago. She was seen in the office and planned to see the pain doctor for further adjustments. The patient's pain has gotten so severe that it was unbearable and she required admission for pain management via IV modes. The patient's care was discussed and reviewed. Records and ER MD notes reviewed. The patient overnight has been stable. No other significant symptoms. No urinary incontinence. The patient notes significant debility and difficulty with ambulating and with her ADLs PAST MEDICAL HISTORY: Notable for diabetes, bipolar disorder, chronic spinal stenosis, chronic pain management, chronic opiate dependence, multiple allergies, cholelithiasis, and history of diabetes. MEDICATIONS: Reviewed. ALLERGIES: Reviewed. SOCIAL HISTORY: The patient is a nonsmoker and nondrinker at present. The patient is disabled. Walker bound. REVIEW OF SYSTEMS: All 10-points reviewed. The patient is increasingly debilitated. She had significant neuropathy, has chronic pain, and chronic difficulty with ambulating. No current gallstone symptoms are present. PHYSICAL EXAMINATION: GENERAL: A well-developed female appears to be NAD VITAL SIGNS: reviewed NECK: Supple. No adenopathy. LUNGS: Fairly clear and symmetric. CARDIAC: Normal S1 and S2. Regular rate and rhythm without murmurs, rubs, or gallops. ABDOMEN: Soft, nontender, and nondistended. No hepatosplenomegaly. No right upper quadrant tenderness. No Sims sign. EXTREMITIES: No cyanosis, clubbing, or edema. Mild atrophy. NEUROLOGICALLY: With diffuse weakness mostly in the lower extremities, but no significant change. LABORATORY DATA: Labs Test 01/09/19 11:30 01/09/19 12:40 White Blood Count 9.1 K/UL (4.8-10.8) Red Blood Count 4.82 M/UL (4.20-5.40) Hemoglobin 12.8 G/DL (12.0-16.0) Hematocrit 39.8 % (37.0-47.0) Mean Corpuscular Volume 83 FL (80-99) Mean Corpuscular Hemoglobin 26.5 PG (27.0-31.0) Mean Corpuscular Hemoglobin Concent 32.1 G/DL (32.0-36.0) Red Cell Distribution Width 15.6 % (11.6-14.8) Platelet Count 203 K/UL (150-450) Mean Platelet Volume 9.6 FL (6.5-10.1) Neutrophils (%) (Auto) 69.9 % (45.0-75.0) Lymphocytes (%) (Auto) 21.5 % (20.0-45.0) Monocytes (%) (Auto) 6.2 % (1.0-10.0) Eosinophils (%) (Auto) 1.3 % (0.0-3.0) Basophils (%) (Auto) 1.1 % (0.0-2.0) Prothrombin Time 10.0 SEC (9.30-11.50) Prothromb Time International Ratio 0.9 (0.9-1.1) Activated Partial Thromboplast Time 30 SEC (23-33) Sodium Level 140 MMOL/L (136-145) Potassium Level 4.0 MMOL/L (3.5-5.1) Chloride Level 107 MMOL/L (98-107) Carbon Dioxide Level 22 MMOL/L (21-32) Anion Gap 11 mmol/L (5-15) Blood Urea Nitrogen 23 mg/dL (7-18) Creatinine 1.1 MG/DL (0.55-1.30) Estimat Glomerular Filtration Rate 59.8 mL/min (>60) Glucose Level 100 MG/DL (74-106) Calcium Level 9.5 MG/DL (8.5-10.1) Total Bilirubin 0.2 MG/DL (0.2-1.0) Aspartate Amino Transf (AST/SGOT) 15 U/L (15-37) Alanine Aminotransferase (ALT/SGPT) 24 U/L (12-78) Alkaline Phosphatase 129 U/L (46-116) Total Protein 7.9 G/DL (6.4-8.2) Albumin 4.0 G/DL (3.4-5.0) Globulin 3.9 g/dL Albumin/Globulin Ratio 1.0 (1.0-2.7) Urine Color Yellow Urine Appearance Cloudy Urine pH 5 (4.5-8.0) Urine Specific [place] 1.025 (1.005-1.035) Urine Protein 1+ (NEGATIVE) Urine Glucose (UA) Negative (NEGATIVE) Urine Ketones Negative (NEGATIVE) Urine Blood 1+ (NEGATIVE) Urine Nitrite Negative (NEGATIVE) Urine Bilirubin Negative (NEGATIVE) Urine Urobilinogen Normal MG/DL (0.0-1.0) Urine Leukocyte Esterase 1+ (NEGATIVE) Urine RBC 0-2 /HPF (0 - 2) Urine WBC 2-4 /HPF (0 - 2) Urine Squamous Epithelial Cells Few /LPF (NONE/OCC) Urine Bacteria Moderate /HPF (NONE) Urine Opiates Screen Positive (NEGATIVE) Urine Barbiturates Screen Negative (NEGATIVE) Phencyclidine (PCP) Screen Negative (NEGATIVE) Urine Amphetamines Screen Negative (NEGATIVE) Urine Benzodiazepines Screen Negative (NEGATIVE) Urine Cocaine Screen Negative (NEGATIVE) Urine Marijuana (THC) Screen Negative (NEGATIVE) IMPRESSION: 1. Significant intractable pain. 2. Opioid dependence. 3. Spinal stenosis, advanced. 4. Lumbar radiculopathy, advanced. 5. Cholelithiasis, 6. Hyperglycemia. 7. History of diabetes. RECOMMENDATIONS: 1. Supportive care. 2. Pain management as is 3. IV pain medication as needed 4. home meds 5. monitor for change 6. supportive care 7. surgical follow up upon discharge impression, plan, and exam edited and reviewed in detail care discussed with Bennett Cole MD January 10, 2019 08:00
[2019-01-10 09:00] VITALS: BP_SYST 125; BP_DIAS 7; BP_DIAS 71
--- NOTE | 2019-01-10 09:31 | NUR ---
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 SCIATICA VS: BP 119/78, P 102, T 98.2, RR 20, SpO2 98 BUN 23, ALK PHOS 129 IS:ZOFRAN 4mg IVP NS xL IV TORADOL 15mg IV MORPHINE SULFATE 4mg IVP ADMITTED TO MED/SURG DCP: RETURN HOME
[2019-01-10] MEDS: clonazePAM 0.5mg tab ORAL SCH ×2 (09:44→21:24)
[2019-01-10] MEDS: metFORMIN 500mg tab ORAL SCH ×2 (09:44→18:00)
[2019-01-10] MEDS: Heparin 5000 units/ml inj SUBQ SCH ×2 (09:46→21:27)
--- NOTE | 2019-01-10 11:20 | NUR ---
PT EVALUATION NOTE Patient seen for initial evaluation, see initial evaluation for details. Patient presents with impaired functional mobility limited by pain. Patient will benefit from skilled inpatient PT intervention to address strength, balance, safety and functional mobility. Anticipate discharge home once medically cleared by MD, may benefit from home PT follow up. Patient appears to have necessary DME at home. Addendum: 01/10/19 at 1306 by LILLIE LOPEZ PT Amended: Links added.
[2019-01-10 12:00] VITALS: BP 132/74
--- NOTE | 2019-01-10 12:37 | Diagnostic Imaging Report ---
Indications: Left hip pain Findings: Two views of the left hip, AP pelvis and two-view right hip were obtained. There is severe osteoarthritis of both hips with joint space obliteration, extensive osteophyte and subchondral cyst formation/sclerosis. 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 No acute fractures are appreciated. No malalignment identified. Degenerative disc disease noted in the lower lumbar spine. Bones are osteopenic. IMPRESSION: Severe osteoarthrosis
--- NOTE | 2019-01-10 12:44 | NUR ---
NURSE NOTES: Patient vomited undigested food,will notify DR Siddiqui regarding medication for nausea.
--- NOTE | 2019-01-10 13:00 | NUR ---
Social Service Note SW familiar with patient from previous admissions. SW met with patient who is alert, oriented and verbally responsive. Patient states she continues to have chronic back and leg pain. Patient believes she needs a change of pain medication. Patient lives alone and continues to have John Elmore as her [facility] caregiver [phone]. Patient utilizes a FWW and cane at home. Patient states her dgts [place] and [place] are not involved with her care. Patient states she might be in agreement with SNF placement but her preference is to return home. Patient with prior history of signing out AMA. Patient with previous home health [facility], but currently no home health visits. Patient is a full code and doesn't have an advance directive. Will continue to monitor and assist as needed.
[2019-01-10 16:00] VITALS: BP 130/71
--- NOTE | 2019-01-10 16:03 | Cardiology Report ---
APPROVED REPORT EKG Measurement Heart [id number] Normal sinus rhythm Possible Left atrial enlargement Right bundle branch block Abnormal ECG
--- NOTE | 2019-01-10 16:40 | General Progress Note ---
Assessment/Plan Assessment/Plan: (1) Narcotic dependence (2) Lumbar radiculopathy (3) Lumbar spondylosis (4) Lumbar spinal stenosis Pt will be continued on Morphine. Pt was d/w Dr. Mckeon and he concurred. Subjective Date patient seen: January 10, 2019 Time patient seen: 04:00 - pm Allergies: Coded Allergies: AMOXICILLIN (Verified Allergy, Unknown, RASH, 02/10/09) CODEINE (Verified Allergy, Unknown, RASH, 02/10/09) DIPHENHYDRAMINE (Verified Allergy, Unknown, 02/10/09) PENICILLINS (Unverified Allergy, Unknown, 12/26/18) TETRACYCLINE (Verified Allergy, Unknown, 02/10/09) Subjective Constitutional: Denies: no symptoms, chills, diaphoresis, fever, malaise, weakness, other HEENT: Denies: no symptoms, eye pain, blurred vision, tearing, double vision, ear pain, ear discharge, nose pain, nose congestion, throat pain, throat swelling, mouth pain, mouth swelling, other Cardiovascular: Denies: no symptoms, chest pain, edema, irregular heart rate, lightheadedness, palpitations, syncope, other Respiratory: Denies: no symptoms, cough, orthopnea, shortness of breath, SOB with excertion, SOB at rest, sputum, stridor, wheezing, other Gastrointestinal/Abdominal: Denies: no symptoms, abdomen distended, abdominal pain, black stools, tarry stools, blood in stool, constipated, diarrhea, difficulty swallowing, nausea, poor appetite, poor fluid intake, rectal bleeding , vomiting, other Genitourinary: Denies: no symptoms, burning, discharge, frequency, flank pain, hematuria, incontinence, pain, urgency, other Neurologic/Psychiatric: Reports: tingling, weakness Endocrine: Denies: no symptoms, excessive sweating, flushing, intolerance to cold, intolerance to heat, increased hunger, increased thirst, increased urine, unexplained weight gain, unexplained weight loss, other Hematologic/Lymphatic: Denies: no symptoms, anemia, easy bleeding, easy bruising, other Subjective Pt is a known patient from prior admission. She continues to c/o back and hip pain. Was started on Morphine 4mg IV Q3H PRN. We were consulted so patient has adequate pain control while here in the hospital. Objective Last 24 Hour Vital Signs Date Time Temp Pulse Resp B/P (MAP) Pulse Ox O2 Delivery O2 Flow Rate FiO2 01/10/19 12:00 98.2 82 132/74 (93) 98 01/10/19 09:00 99.1 93 14 125/71 (89) 95 01/10/19 04:00 98.5 104 16 115/67 (83) 93 01/10/19 00:00 98.3 93 16 132/73 (92) 100 01/09/19 21:00 Room Air 01/09/19 20:00 98.1 81 14 137/67 (90) 100 01/09/19 17:09 Room Air Intake and Output 01/09/19 01/10/19 19:00 07:00 Intake Total 2240 ml 300 ml Balance 2240 ml 300 ml Intake Oral 240 ml 300 ml IV Total 2000 ml # Voids 2 Height (Feet): 5 Height (Inches): 7.00 Weight (Pounds): 129 Objective General Appearance: no apparent distress, alert EENT: PERRL/EOMI Neck: non-tender, supple Cardiovascular: normal rate, regular rhythm Respiratory/Chest: lungs clear, normal breath sounds Abdomen: non tender, soft Extremities: non-tender Edema: no edema noted Arm (L), no edema noted Arm (R), no edema noted Leg (L), no edema noted Leg (R), no edema noted Pedal (L), no edema noted Pedal (R), no edema noted Generalized Neurologic: alert, oriented Skin: warm/dry Sebastian Lea January 10, 2019 16:40
--- NOTE | 2019-01-10 18:17 | NUR ---
NURSE NOTES:Patient ambulated to bathroom ,gait is slow but steady,patient ate on a few bites of dinner,patient state nausea has subsided since getting the zofran,patient did not want to take her Metformin .Will medicate patient for complaint of pain.
[2019-01-10] MEDS: Morphine Sulfate 4mg/ml Inj (IV USE ONLY) IVP PRN ×2 (19:05→22:22)
--- NOTE | 2019-01-10 19:05 | NUR ---
NURSE NOTES: Patient medicated for complaint of pain,call light within reach.
[2019-01-10] MEDS ORDERED: METFORMIN HCL500 M1 ORAL (19:34)
--- NOTE | 2019-01-10 19:38 | NUR ---
HAND-OFF: Report given to MARILU RN.
--- NOTE | 2019-01-10 19:40 | NUR ---
NURSE NOTES: RECEIVED PT FROM AL FLOWER. PATIENT IS AWAKE, RESTING IN BED. DENIES PAIN AT THE MOMENT. PT IS ON ROOM AIR, NO ACUTE DISTRESS NOTED. L ARM 20G IV IS INTACT AND PATENT. BED IS AT THE LOWEST POSITION, BED ALARMS ACTIVE, SIDE RAILS UP X2, AND CALL LIGHT IS WITHIN REACH. WILL CONTINUE TO MONITOR
[2019-01-10 20:00] VITALS: BP 157/86
[2019-01-10] MEDS: QUEtiapine 200mg tab ORAL SCH (21:24)
[2019-01-11] VITALS: BP 134/76
[2019-01-11] MEDS: Morphine Sulfate 4mg/ml Inj (IV USE ONLY) IVP PRN ×7 (02:52→21:46)
[2019-01-11 04:31] VITALS: BP 151/84
[2019-01-11] MEDS: NovoLOG Insulin Flexpen SUBQ SCH ×4 (06:30→20:57)
--- NOTE | 2019-01-11 07:29 | NUR ---
NURSE NOTES: RECEIVED PT FROM AL COLÓN. PT IS AWAKE, AAO X4, ON ROOM AIR, NO ACUTE DISTRESS NOTED. IV ON LEFT FA IS INTACT AND PATENT. BED IS LOCKED AT THE LOWEST POSITION, BED ALARMS ACTIVE, SIDE RAILS UP X2, AND CALL LIGHT IS WITHIN REACH. WILL CONTINUE TO MONITOR
[2019-01-11 08:00] VITALS: BP 137/88
--- NOTE | 2019-01-11 08:04 | NUR ---
HAND-OFF: Report given to AL COLÓN.
--- NOTE | 2019-01-11 08:43 | General Progress Note ---
Assessment/Plan Assessment/Plan: (1) Narcotic dependence (2) Lumbar radiculopathy (3) Lumbar spondylosis (4) Lumbar spinal stenosis Pt will be continued on Morphine. Pt was d/w Dr. Mckeon and he concurred. Subjective Date patient seen: January 11, 2019 Time patient seen: 07:30 - am Allergies: Coded Allergies: AMOXICILLIN (Verified Allergy, Unknown, RASH, 02/10/09) CODEINE (Verified Allergy, Unknown, RASH, 02/10/09) DIPHENHYDRAMINE (Verified Allergy, Unknown, 02/10/09) PENICILLINS (Unverified Allergy, Unknown, 12/26/18) TETRACYCLINE (Verified Allergy, Unknown, 02/10/09) Subjective Constitutional: Denies: no symptoms, chills, diaphoresis, fever, malaise, weakness, other HEENT: Denies: no symptoms, eye pain, blurred vision, tearing, double vision, ear pain, ear discharge, nose pain, nose congestion, throat pain, throat swelling, mouth pain, mouth swelling, other Cardiovascular: Denies: no symptoms, chest pain, edema, irregular heart rate, lightheadedness, palpitations, syncope, other Respiratory: Denies: no symptoms, cough, orthopnea, shortness of breath, SOB with excertion, SOB at rest, sputum, stridor, wheezing, other Gastrointestinal/Abdominal: Denies: no symptoms, abdomen distended, abdominal pain, black stools, tarry stools, blood in stool, constipated, diarrhea, difficulty swallowing, nausea, poor appetite, poor fluid intake, rectal bleeding , vomiting, other Genitourinary: Denies: no symptoms, burning, discharge, frequency, flank pain, hematuria, incontinence, pain, urgency, other Neurologic/Psychiatric: Reports: tingling, weakness Endocrine: Denies: no symptoms, excessive sweating, flushing, intolerance to cold, intolerance to heat, increased hunger, increased thirst, increased urine, unexplained weight gain, unexplained weight loss, other Hematologic/Lymphatic: Denies: no symptoms, anemia, easy bleeding, easy bruising, other Subjective Pt is in bed continues to c/o pain which she has used the Morphine for, the pain is reduced to a tolerable level. She has no new complaints at this time. Objective Last 24 Hour Vital Signs Date Time Temp Pulse Resp B/P (MAP) Pulse Ox O2 Delivery O2 Flow Rate FiO2 01/11/19 04:31 98.6 75 18 151/84 (106) 96 01/11/19 00:00 98.9 90 20 134/76 (95) 97 01/10/19 21:00 Room Air 01/10/19 20:00 98.2 94 18 157/86 (109) 98 01/10/19 16:00 98.0 80 19 130/71 (90) 99 01/10/19 12:00 98.2 82 132/74 (93) 98 01/10/19 09:00 Room Air 01/10/19 09:00 99.1 93 14 125/71 (89) 95 Intake and Output 01/10/19 01/11/19 19:00 07:00 Intake Total 1000 ml Output Total 2 ml Balance 1000 ml -2 ml Intake Oral 1000 ml Output Urine Total 2 ml # Voids 6 Height (Feet): 5 Height (Inches): 7.00 Weight (Pounds): 129 Objective General Appearance: no apparent distress, alert EENT: PERRL/EOMI Neck: non-tender, supple Cardiovascular: normal rate, regular rhythm Respiratory/Chest: lungs clear, normal breath sounds Abdomen: non tender, soft Extremities: non-tender Edema: no edema noted Arm (L), no edema noted Arm (R), no edema noted Leg (L), no edema noted Leg (R), no edema noted Pedal (L), no edema noted Pedal (R), no edema noted Generalized Neurologic: alert, oriented Skin: warm/dry Sebastian Lea January 11, 2019 08:43
[2019-01-11] MEDS: clonazePAM 0.5mg tab ORAL SCH ×2 (09:04→20:47)
[2019-01-11] MEDS: metFORMIN 500mg tab ORAL SCH ×2 (09:04→17:17)
[2019-01-11] MEDS: Heparin 5000 units/ml inj SUBQ SCH ×2 (09:06→20:50)
--- NOTE | 2019-01-11 10:22 | NUR ---
PT NOTES: Pt in bed awake & alert, declines PT. Pt c/o she is in "too much pain." Pt admits she had Morphine at 9am, but indicates she is unable to do any GT at the moment. Primary nurse made aware of pt's c/o & refusal. Pt states she walks from her bed to BR with FWW. Left with all needs in reach.
--- NOTE | 2019-01-11 10:37 | Pulmonology Progress Note ---
Assessment/Plan Assessment/Plan Pulmonary Progress Note HISTORY OF PRESENT ILLNESS: 68-year-old female admitted through the emergency room with intractable pain. The patient has been treated by another pain management doctor and notes that she has recently seen a spinal surgeon and noted to have severe spinal stenosis and would require surgery. Patient recently admitted and discharged for similar reasons 2 weeks ago. She was seen in the office and planned to see the pain doctor for further adjustments. The patient's pain has gotten so severe that it was unbearable and she required admission for pain management via IV modes. The patient's care was discussed and reviewed. Records and ER MD notes reviewed. The patient overnight has been stable. No other significant symptoms. No urinary incontinence. The patient notes significant debility and difficulty with ambulating and with her ADLs PAST MEDICAL HISTORY: Notable for diabetes, bipolar disorder, chronic spinal stenosis, chronic pain management, chronic opiate dependence, multiple allergies, cholelithiasis, and history of diabetes. MEDICATIONS: Reviewed. ALLERGIES: Reviewed. SOCIAL HISTORY: The patient is a nonsmoker and nondrinker at present. The patient is disabled. Walker bound. REVIEW OF SYSTEMS: All 10-points reviewed. The patient is increasingly debilitated. She had significant neuropathy, has chronic pain, and chronic difficulty with ambulating. No current gallstone symptoms are present. PHYSICAL EXAMINATION: GENERAL: A well-developed female appears to be NAD VITAL SIGNS: reviewed NECK: Supple. No adenopathy. LUNGS: Fairly clear and symmetric. CARDIAC: Normal S1 and S2. Regular rate and rhythm without murmurs, rubs, or gallops. ABDOMEN: Soft, nontender, and nondistended. No hepatosplenomegaly. No right upper quadrant tenderness. No Sims sign. EXTREMITIES: No cyanosis, clubbing, or edema. Mild atrophy. NEUROLOGICALLY: With diffuse weakness mostly in the lower extremities, but no significant change. LABORATORY DATA: Labs Noted Test 01/09/19 11:30 01/09/19 12:40 White Blood Count 9.1 K/UL (4.8-10.8) Red Blood Count 4.82 M/UL (4.20-5.40) Hemoglobin 12.8 G/DL (12.0-16.0) Hematocrit 39.8 % (37.0-47.0) Mean Corpuscular Volume 83 FL (80-99) Mean Corpuscular Hemoglobin 26.5 PG (27.0-31.0) Mean Corpuscular Hemoglobin Concent 32.1 G/DL (32.0-36.0) Red Cell Distribution Width 15.6 % (11.6-14.8) Platelet Count 203 K/UL (150-450) Mean Platelet Volume 9.6 FL (6.5-10.1) Neutrophils (%) (Auto) 69.9 % (45.0-75.0) Lymphocytes (%) (Auto) 21.5 % (20.0-45.0) Monocytes (%) (Auto) 6.2 % (1.0-10.0) Eosinophils (%) (Auto) 1.3 % (0.0-3.0) Basophils (%) (Auto) 1.1 % (0.0-2.0) Prothrombin Time 10.0 SEC (9.30-11.50) Prothromb Time International Ratio 0.9 (0.9-1.1) Activated Partial Thromboplast Time 30 SEC (23-33) Sodium Level 140 MMOL/L (136-145) Potassium Level 4.0 MMOL/L (3.5-5.1) Chloride Level 107 MMOL/L (98-107) Carbon Dioxide Level 22 MMOL/L (21-32) Anion Gap 11 mmol/L (5-15) Blood Urea Nitrogen 23 mg/dL (7-18) Creatinine 1.1 MG/DL (0.55-1.30) Estimat Glomerular Filtration Rate 59.8 mL/min (>60) Glucose Level 100 MG/DL (74-106) Calcium Level 9.5 MG/DL (8.5-10.1) Total Bilirubin 0.2 MG/DL (0.2-1.0) Aspartate Amino Transf (AST/SGOT) 15 U/L (15-37) Alanine Aminotransferase (ALT/SGPT) 24 U/L (12-78) Alkaline Phosphatase 129 U/L (46-116) Total Protein 7.9 G/DL (6.4-8.2) Albumin 4.0 G/DL (3.4-5.0) Globulin 3.9 g/dL Albumin/Globulin Ratio 1.0 (1.0-2.7) Urine Color Yellow Urine Appearance Cloudy Urine pH 5 (4.5-8.0) Urine Specific Ponce 1.025 (1.005-1.035) Urine Protein 1+ (NEGATIVE) Urine Glucose (UA) Negative (NEGATIVE) Urine Ketones Negative (NEGATIVE) Urine Blood 1+ (NEGATIVE) Urine Nitrite Negative (NEGATIVE) Urine Bilirubin Negative (NEGATIVE) Urine Urobilinogen Normal MG/DL (0.0-1.0) Urine Leukocyte Esterase 1+ (NEGATIVE) Urine RBC 0-2 /HPF (0 - 2) Urine WBC 2-4 /HPF (0 - 2) Urine Squamous Epithelial Cells Few /LPF (NONE/OCC) Urine Bacteria Moderate /HPF (NONE) Urine Opiates Screen Positive (NEGATIVE) Urine Barbiturates Screen Negative (NEGATIVE) Phencyclidine (PCP) Screen Negative (NEGATIVE) Urine Amphetamines Screen Negative (NEGATIVE) Urine Benzodiazepines Screen Negative (NEGATIVE) Urine Cocaine Screen Negative (NEGATIVE) Urine Marijuana (THC) Screen Negative (NEGATIVE) IMPRESSION: 1. Significant intractable pain. 2. Opioid dependence. 3. Spinal stenosis, advanced. 4. Lumbar radiculopathy, advanced. 5. Cholelithiasis, 6. Hyperglycemia. 7. History of diabetes. 8. Hip OA 9. Possible UTI RECOMMENDATIONS: 1. Supportive care. 2. Pain management following 3. IV pain medication as needed 4. home meds 5. monitor for change 6. supportive care 7. surgical follow up upon discharge impression, plan, and exam edited and reviewed in detail care discussed with RN Subjective ROS Limited/Unobtainable: No Allergies: Coded Allergies: AMOXICILLIN (Verified Allergy, Unknown, RASH, 02/10/09) CODEINE (Verified Allergy, Unknown, RASH, 02/10/09) DIPHENHYDRAMINE (Verified Allergy, Unknown, 02/10/09) PENICILLINS (Unverified Allergy, Unknown, 12/26/18) TETRACYCLINE (Verified Allergy, Unknown, 02/10/09) Objective Last 24 Hour Vital Signs Date Time Temp Pulse Resp B/P (MAP) Pulse Ox O2 Delivery O2 Flow Rate FiO2 01/11/19 08:00 97.4 106 18 137/88 (104) 96 01/11/19 04:31 98.6 75 18 151/84 (106) 96 01/11/19 00:00 98.9 90 20 134/76 (95) 97 01/10/19 21:00 Room Air 01/10/19 20:00 98.2 94 18 157/86 (109) 98 01/10/19 16:00 98.0 80 19 130/71 (90) 99 01/10/19 12:00 98.2 82 132/74 (93) 98 Intake and Output 01/10/19 01/11/19 18:59 06:59 Intake Total 1000 ml Output Total 2 ml Balance 1000 ml -2 ml Intake Oral 1000 ml Output Urine Total 2 ml # Voids 6 Microbiology Date/Time Source Procedure Growth Status 01/09/19 12:40 Urine,Clean Catch Urine Culture - Preliminary Gram Negative Bacillus 1 Resulted 01/09/19 14:50 Rectum VRE Culture - Final NO VANCOMYCIN RESISTANT ENTEROCOCCUS ... Complete Current Medications Medications (Trade) Dose Ordered Sig/Brittany Route PRN Reason Start Time Stop Time Status Last Admin Dose Admin Acetaminophen (Tylenol) 650 mg Q4H PRN ORAL Mild Pain/Temp > 100.5 01/10/19 13:30 02/09/19 13:29 Clonazepam (KlonoPIN) 0.5 mg EVERY 12 HOURS ORAL 01/09/19 21:00 01/16/19 20:59 01/11/19 09:04 Dextrose (Dextrose 50%) 25 ml Q30M PRN IV Hypoglycemia 01/09/19 16:45 02/08/19 16:44 Dextrose (Dextrose 50%) 50 ml Q30M PRN IV Hypoglycemia 01/09/19 16:38 02/08/19 16:37 Heparin Sodium (Porcine) (Heparin 5000 units/ml) 5,000 units EVERY 12 HOURS SUBQ 01/09/19 21:00 02/08/19 20:59 01/11/19 09:06 Insulin Aspart (NovoLOG) BEFORE MEALS AND HS SUBQ 01/09/19 17:30 02/08/19 17:29 01/10/19 06:26 Metformin HCl (Glucophage) 500 mg BID ORAL 01/10/19 09:00 02/09/19 08:59 01/11/19 09:04 Mirtazapine (Remeron) 30 mg BEDTIME ORAL 01/09/19 21:00 02/08/19 20:59 01/10/19 21:24 Morphine Sulfate (Morphine Sulfate) 4 mg Q3H PRN IVP Severe Pain (Pain Scale 7-10) 01/10/19 16:15 01/17/19 16:14 01/11/19 09:06 Multivitamins (Multivitamins) 1 tab DAILY ORAL 01/10/19 09:00 02/09/19 08:59 01/11/19 09:04 Ondansetron HCl (Zofran) 4 mg Q6H PRN IVP Nausea & Vomiting 01/10/19 13:30 02/09/19 13:29 01/10/19 16:10 Quetiapine Fumarate (SEROquel) 100 mg DAILY ORAL 01/10/19 09:00 02/09/19 08:59 01/11/19 09:04 Quetiapine Fumarate (SEROquel) 200 mg BEDTIME ORAL 01/09/19 21:00 02/08/19 20:59 01/10/19 21:24 Kiko Mckeon MD January 11, 2019 10:37
--- NOTE | 2019-01-11 11:27 | NUR ---
NURSE NOTES: received call from Dr. Mckeon and received order Levaquin PO 500mg daily x3days for UTI. order read back. order noted and carried out.
[2019-01-11 12:00] VITALS: BP 137/83
[2019-01-11 16:00] VITALS: BP 141/96
--- NOTE | 2019-01-11 19:30 | NUR ---
HAND-OFF: Report given to AL Gupta.
[2019-01-11 20:00] VITALS: BP 128/80
[2019-01-11] MEDS: QUEtiapine 200mg tab ORAL SCH (20:48)
[2019-01-12] VITALS: BP 130/81
[2019-01-12] MEDS: Morphine Sulfate 4mg/ml Inj (IV USE ONLY) IVP PRN ×5 (02:00→20:51)
[2019-01-12 04:00] VITALS: BP 135/79
[2019-01-12] MEDS: NovoLOG Insulin Flexpen SUBQ SCH ×4 (06:27→21:00)
--- NOTE | 2019-01-12 07:55 | NUR ---
HAND-OFF: Report given to AL PAUL.
--- NOTE | 2019-01-12 07:56 | NUR ---
NURSE NOTES: Patient received resting in bed, breathing unlabored on room air. No signs of pain noted. Walker by the bedside. Bed locked in lowest position, call light placed within reach. Will continue to monitor.
[2019-01-12 08:00] VITALS: BP 123/68
--- NOTE | 2019-01-12 08:51 | General Progress Note ---
Assessment/Plan Assessment/Plan: (1) Narcotic dependence (2) Lumbar radiculopathy (3) Lumbar spondylosis (4) Lumbar spinal stenosis Pt will be continued on Morphine. Pt was d/w Dr. Mckeon and he concurred. Subjective Date patient seen: January 12, 2019 Time patient seen: 07:30 - am Allergies: Coded Allergies: AMOXICILLIN (Verified Allergy, Unknown, RASH, 02/10/09) CODEINE (Verified Allergy, Unknown, RASH, 02/10/09) DIPHENHYDRAMINE (Verified Allergy, Unknown, 02/10/09) PENICILLINS (Unverified Allergy, Unknown, 12/26/18) TETRACYCLINE (Verified Allergy, Unknown, 02/10/09) Subjective Constitutional: Denies: no symptoms, chills, diaphoresis, fever, malaise, weakness, other HEENT: Denies: no symptoms, eye pain, blurred vision, tearing, double vision, ear pain, ear discharge, nose pain, nose congestion, throat pain, throat swelling, mouth pain, mouth swelling, other Cardiovascular: Denies: no symptoms, chest pain, edema, irregular heart rate, lightheadedness, palpitations, syncope, other Respiratory: Denies: no symptoms, cough, orthopnea, shortness of breath, SOB with excertion, SOB at rest, sputum, stridor, wheezing, other Gastrointestinal/Abdominal: Denies: no symptoms, abdomen distended, abdominal pain, black stools, tarry stools, blood in stool, constipated, diarrhea, difficulty swallowing, nausea, poor appetite, poor fluid intake, rectal bleeding , vomiting, other Genitourinary: Denies: no symptoms, burning, discharge, frequency, flank pain, hematuria, incontinence, pain, urgency, other Neurologic/Psychiatric: Reports: tingling, weakness Endocrine: Denies: no symptoms, excessive sweating, flushing, intolerance to cold, intolerance to heat, increased hunger, increased thirst, increased urine, unexplained weight gain, unexplained weight loss, other Hematologic/Lymphatic: Denies: no symptoms, anemia, easy bleeding, easy bruising, other Subjective Pt laying in bed describing the pain as sharp and stabbing. She has been tolerating the pain on the Morphine 7 doses in the last 24hrs. 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 She seems to understand. D/w office cleaner. Objective Last 24 Hour Vital Signs Date Time Temp Pulse Resp B/P (MAP) Pulse Ox O2 Delivery O2 Flow Rate FiO2 01/12/19 04:00 98.1 95 18 135/79 (97) 94 01/12/19 00:00 98.1 91 18 130/81 (97) 97 01/11/19 21:00 Room Air 01/11/19 20:00 98.5 90 20 128/80 (96) 99 01/11/19 16:00 98.8 93 18 141/96 (111) 98 01/11/19 12:00 98.5 87 18 137/83 (101) 98 01/11/19 09:00 Room Air Intake and Output 01/11/19 01/12/19 19:00 07:00 Intake Total 720 ml Balance 720 ml Intake Oral 720 ml # Voids 6 1 Height (Feet): 5 Height (Inches): 7.00 Weight (Pounds): 129 Objective General Appearance: no apparent distress, alert EENT: PERRL/EOMI Neck: non-tender, supple Cardiovascular: normal rate, regular rhythm Respiratory/Chest: lungs clear, normal breath sounds Abdomen: non tender, soft Extremities: non-tender Edema: no edema noted Arm (L), no edema noted Arm (R), no edema noted Leg (L), no edema noted Leg (R), no edema noted Pedal (L), no edema noted Pedal (R), no edema noted Generalized Neurologic: alert, oriented Skin: warm/dry Sebastian Lea January 12, 2019 08:51
[2019-01-12] MEDS: QUEtiapine 200mg tab ORAL SCH ×2 (10:23→20:53)
[2019-01-12] MEDS: metFORMIN 500mg tab ORAL SCH ×2 (10:23→17:08)
[2019-01-12] MEDS: clonazePAM 0.5mg tab ORAL SCH ×2 (10:23→20:52)
[2019-01-12] MEDS: Heparin 5000 units/ml inj SUBQ SCH ×2 (10:34→20:55)
[2019-01-12 12:00] VITALS: BP 116/73
--- NOTE | 2019-01-12 13:04 | NUR ---
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 97.9 HR 90 RR 20 B/P 116/73 RA 98% IS: LEVAQUIN PO HEPARIN SUBC MORPHINE IV MED/SURG STATUS
--- NOTE | 2019-01-12 13:14 | General Progress Note ---
Assessment/Plan Assessment/Plan: IMPRESSION: 1. Significant intractable pain. 2. Opioid dependence. 3. Spinal stenosis, advanced. 4. Lumbar radiculopathy, advanced. 5. Cholelithiasis, 6. Hyperglycemia. 7. History of diabetes. RECOMMENDATIONS: 1. Supportive care as is 2. Pain management as is- currently better 3. IV pain medication as needed 4. home meds as is 5. monitor for change 6. supportive care 7. surgical follow up with spine to be arranged impression, plan, and exam edited and reviewed in detail care discussed with RN Subjective Allergies: Coded Allergies: AMOXICILLIN (Verified Allergy, Unknown, RASH, 02/10/09) CODEINE (Verified Allergy, Unknown, RASH, 02/10/09) DIPHENHYDRAMINE (Verified Allergy, Unknown, 02/10/09) PENICILLINS (Unverified Allergy, Unknown, 12/26/18) TETRACYCLINE (Verified Allergy, Unknown, 02/10/09) Subjective having severe pain wants surgery now explained that she would need to be evaluated per pain MD, needs to return to her pain MD for further changes of pain meds Objective Last 24 Hour Vital Signs Date Time Temp Pulse Resp B/P (MAP) Pulse Ox O2 Delivery O2 Flow Rate FiO2 01/12/19 12:00 97.9 98 20 116/73 (87) 94 01/12/19 09:00 Room Air 01/12/19 08:00 97.2 99 20 123/68 (86) 90 01/12/19 04:00 98.1 95 18 135/79 (97) 94 01/12/19 00:00 98.1 91 18 130/81 (97) 97 01/11/19 21:00 Room Air 01/11/19 20:00 98.5 90 20 128/80 (96) 99 01/11/19 16:00 98.8 93 18 141/96 (111) 98 Intake and Output 01/11/19 01/12/19 19:00 07:00 Intake Total 720 ml Balance 720 ml Intake Oral 720 ml # Voids 6 1 Height (Feet): 5 Height (Inches): 7.00 Weight (Pounds): 129 Objective WDWN NAD clear breath sounds bilaterally without rhonchi or wheeze [id number] without MRG NABS nontender no HSM no CCE reduced ROM of hips pain with movement nonfocal Bennett Siddiqui MD January 12, 2019 13:14
[2019-01-12 16:00] VITALS: BP 126/84
--- NOTE | 2019-01-12 19:42 | NUR ---
HAND-OFF: Report given to Candy RN.
--- NOTE | 2019-01-12 19:45 | NUR ---
NURSE NOTES: RECEIVED PT FROM AL PAUL. PT IS AWAKE, AAO X4. PT IS ON ROOM AIR, UNLABORED BREATHING. PT C/O PAIN 10/10 IN BILATERAL LEGS, AND BACK. IV ON R FA 22G IS INTACT AND PATENT. WALKER AT BED SIDE. BED IS LOCKED AT THE LOWEST POSITION, BED ALARMS ACTIVE, SIDE RAILS UP X2 AND CALL LIGHT IS WITHIN REACH. WILL CONTINUE TO MONITOR.
[2019-01-12 20:00] VITALS: BP 141/90
[2019-01-13] VITALS: BP 127/80
[2019-01-13] MEDS: Morphine Sulfate 4mg/ml Inj (IV USE ONLY) IVP PRN ×2 (01:49→06:37)
[2019-01-13 04:00] VITALS: BP 132/76
[2019-01-13] MEDS: NovoLOG Insulin Flexpen SUBQ SCH (06:41)
--- NOTE | 2019-01-13 07:28 | NUR ---
HAND-OFF: Report given to AL PAUL. PT IS IN STABLE CONDITION. UP IN BED EATING BREAKFAST. NO ACUTE DISTRESS NOTED.
--- NOTE | 2019-01-13 07:41 | NUR ---
NURSE NOTES: Patient received in stable condition, eating breakfast in bed. Alert and oriented, no changes in LOC noted. Denies SOB or pain at this time. Expresses anticipation of discharge today. Walker by the bedside. Bed locked in lowest position, call light placed within reach. Will continue to monitor.
[2019-01-13 08:00] VITALS: BP 123/75
--- NOTE | 2019-01-13 08:37 | General Progress Note ---
Assessment/Plan Assessment/Plan: IMPRESSION: 1. Significant intractable pain. 2. Opioid dependence. 3. Spinal stenosis, advanced. 4. Lumbar radiculopathy, advanced. 5. Cholelithiasis, 6. Hyperglycemia. 7. History of diabetes. 8. UTI RECOMMENDATIONS: 1. Supportive care as is 2. Pain management as is- currently better 3. PO cipro on discharge 4. home meds as is 5. monitor for change 6. supportive care; home health 7. surgical follow up today impression, plan, and exam edited and reviewed in detail care discussed with RN Subjective Allergies: Coded Allergies: AMOXICILLIN (Verified Allergy, Unknown, RASH, 02/10/09) CODEINE (Verified Allergy, Unknown, RASH, 02/10/09) DIPHENHYDRAMINE (Verified Allergy, Unknown, 02/10/09) PENICILLINS (Unverified Allergy, Unknown, 12/26/18) TETRACYCLINE (Verified Allergy, Unknown, 02/10/09) Subjective wants to dc plans to see surgeon Objective Last 24 Hour Vital Signs Date Time Temp Pulse Resp B/P (MAP) Pulse Ox O2 Delivery O2 Flow Rate FiO2 01/13/19 04:00 97.6 100 18 132/76 (94) 96 01/13/19 00:00 97.7 98 18 127/80 (96) 95 01/12/19 21:00 Room Air 01/12/19 20:00 98.0 88 18 141/90 (107) 97 01/12/19 16:00 97.1 91 20 126/84 (98) 95 01/12/19 12:00 97.9 98 20 116/73 (87) 94 01/12/19 09:00 Room Air Intake and Output 01/12/19 01/13/19 19:00 07:00 Intake Total 600 ml Output Total 600 ml Balance 0 ml Intake Oral 600 ml Output Urine Total 600 ml # Voids 2 Height (Feet): 5 Height (Inches): 7.00 Weight (Pounds): 129 Objective WDWN NAD clear breath sounds bilaterally without rhonchi or wheeze [id number] without MRG NABS nontender no HSM no CCE reduced ROM of hips pain with movement nonfocal Bennett Siddiqui MD January 13, 2019 08:37
--- NOTE | 2019-01-13 08:44 | General Progress Note ---
Assessment/Plan Assessment/Plan: (1) Narcotic dependence (2) Lumbar radiculopathy (3) Lumbar spondylosis (4) Lumbar spinal stenosis Pt will be continued on Morphine. Pt was d/w Dr. Mckeon and he concurred. Subjective Date patient seen: January 13, 2019 Time patient seen: 07:00 - am Allergies: Coded Allergies: AMOXICILLIN (Verified Allergy, Unknown, RASH, 02/10/09) CODEINE (Verified Allergy, Unknown, RASH, 02/10/09) DIPHENHYDRAMINE (Verified Allergy, Unknown, 02/10/09) PENICILLINS (Unverified Allergy, Unknown, 12/26/18) TETRACYCLINE (Verified Allergy, Unknown, 02/10/09) Subjective Constitutional: Denies: no symptoms, chills, diaphoresis, fever, malaise, weakness, other HEENT: Denies: no symptoms, eye pain, blurred vision, tearing, double vision, ear pain, ear discharge, nose pain, nose congestion, throat pain, throat swelling, mouth pain, mouth swelling, other Cardiovascular: Denies: no symptoms, chest pain, edema, irregular heart rate, lightheadedness, palpitations, syncope, other Respiratory: Denies: no symptoms, cough, orthopnea, shortness of breath, SOB with excertion, SOB at rest, sputum, stridor, wheezing, other Gastrointestinal/Abdominal: Denies: no symptoms, abdomen distended, abdominal pain, black stools, tarry stools, blood in stool, constipated, diarrhea, difficulty swallowing, nausea, poor appetite, poor fluid intake, rectal bleeding , vomiting, other Genitourinary: Denies: no symptoms, burning, discharge, frequency, flank pain, hematuria, incontinence, pain, urgency, other Neurologic/Psychiatric: Reports: tingling, weakness Endocrine: Denies: no symptoms, excessive sweating, flushing, intolerance to cold, intolerance to heat, increased hunger, increased thirst, increased urine, unexplained weight gain, unexplained weight loss, other Hematologic/Lymphatic: Denies: no symptoms, anemia, easy bleeding, easy bruising, other Subjective Pt continues to c/o pain which has been tolerated on the Morphine as needed. No new complaints at this time. Was advised to consult with Neurosurgeon and orthopedist as outpt. She seems to understand. Objective Last 24 Hour Vital Signs Date Time Temp Pulse Resp B/P (MAP) Pulse Ox O2 Delivery O2 Flow Rate FiO2 01/13/19 04:00 97.6 100 18 132/76 (94) 96 01/13/19 00:00 97.7 98 18 127/80 (96) 95 01/12/19 21:00 Room Air 01/12/19 20:00 98.0 88 18 141/90 (107) 97 01/12/19 16:00 97.1 91 20 126/84 (98) 95 01/12/19 12:00 97.9 98 20 116/73 (87) 94 01/12/19 09:00 Room Air Intake and Output 01/12/19 01/13/19 19:00 07:00 Intake Total 600 ml Output Total 600 ml Balance 0 ml Intake Oral 600 ml Output Urine Total 600 ml # Voids 2 Height (Feet): 5 Height (Inches): 7.00 Weight (Pounds): 129 Objective General Appearance: no apparent distress, alert EENT: PERRL/EOMI Neck: non-tender, supple Cardiovascular: normal rate, regular rhythm Respiratory/Chest: lungs clear, normal breath sounds Abdomen: non tender, soft Extremities: non-tender Edema: no edema noted Arm (L), no edema noted Arm (R), no edema noted Leg (L), no edema noted Leg (R), no edema noted Pedal (L), no edema noted Pedal (R), no edema noted Generalized Neurologic: alert, oriented Skin: warm/dry Sebastian Lea January 13, 2019 08:44
[2019-01-13] MEDS: metFORMIN 500mg tab ORAL SCH (08:59)
[2019-01-13] MEDS: clonazePAM 0.5mg tab ORAL SCH (08:59)
[2019-01-13] MEDS: Heparin 5000 units/ml inj SUBQ SCH (09:00)
[2019-01-13] MEDS ORDERED: Levofloxacin 500mg tab ORAL SCH (09:00)
--- NOTE | 2019-01-13 10:08 | NUR ---
NURSE NOTES: Patient discharged to home, accompanied by primary caregiver John, transported by his private vehicle. RN escorted the patient downstairs [facility] with hospital wheelchair. IV safely removed, covered with gauze and tape. Belongings reviewed and confirmed with the patient at bedside. Patient confirmed that she has all her belongings she came with. Discharge packet provided with instructions on back injury prevention and care. Patient verbalized understanding. She stated she was advised to call Dr. Danielle for a referral to a spinal surgeon. Patient verbalized she has his office contact info.
--- NOTE | 2019-01-15 13:05 | Discharge Summary ---
Discharge Summary Discharge Summary _ DATE OF ADMISSION: 01/09/2019 DATE OF DISCHARGE: 01/13/2019 DISCHARGED BY: Dr. Siddiqui REASON FOR ADMISSION: 68 years old female with past medical history of diabetes mellitus, spinal stenosis, chronic pain, chronic opiate dependency, history of cholelithiasis, bipolar disorder, presented to emergency department with intractable back pain. Patient reported that she was unable to ambulate due to increased back pain at that time. Patient follows up with pain specialist as outpatient. Patient reported signs of sciatica , worse on the right side , present for many months. Patient denied bladder or bowel incontinence. No fever, no chills. Upon evaluation patient was slightly tachycardic. No fevers Urine toxicology screen was positive for opiates. Urinalysis revealed moderate bacteria. Glucose 100. Stable electrolytes, no leukocytosis, stable hemoglobin and hematocrit. Patient subsequently was admitted for further management. HOSPITAL COURSE: Patient admitted to medical surgical floor. X-ray of the bilateral hip reveal severe osteoarthrosis. Pain management was addressed as per pain specialist recommendation. Home medication were resumed. Supportive care provided. Urine culture revealed Klebsiella pneumonia. Antibiotic provided for treatment of UTI. Blood sugar was managed with metformin and sliding scale of insulin as needed. Patient clinically stabilized. Pain was controlled. Patient was stable for discharge home. Patient to follow-up with orthopedic surgeon and pain specialist as outpatient. FINAL DIAGNOSES: Intractable back pain Opioid dependency UTI with Klebsiella Advanced lumbar radiculopathy Lumbar spondylosis Advanced lumbar spinal stenosis Diabetes mellitus DISCHARGE MEDICATIONS: See Medication Reconciliation list. DISCHARGE INSTRUCTIONS: Patient was discharged home . Follow up with primary care provider in one week. Follow-up with her orthopedic surgeon and pain specialist as outpatient I have been assigned to dictate discharge summary for this account. I was not involved in the patient's management. Vane Garza NP Jan 15, 2019 13:05
== END 2019-01-13 10:30 | disposition home or self-care (01) | DRG 552 ==
LOC: EDBD 10:58 → EMR 11:15 → 4E 13:04 → EDBEDREQ 13:16 → 4E 16:07
DX: M48.061 Spinal stenosis, lumbar region without neurogenic claudication (principal); F11.20 Opioid dependence, uncomplicated; N39.0 Urinary tract infection, site not specified; M47.26 Other spondylosis with radiculopathy, lumbar region; M16.0 Bilateral primary osteoarthritis of hip; B96.1 Klebsiella pneumoniae [K. pneumoniae] as the cause of diseases classified elsewhere; K80.20 Calculus of gallbladder without cholecystitis without obstruction; E11.65 Type 2 diabetes mellitus with hyperglycemia
CPT/HCPCS: 36415; 73502; 80053; 80307; 81001; 82962; 85025; 85610; 85730; 87081; 87086; 87181; 93005; 96361; 96374; 96375; 99285; J1815; J2405

== ENCOUNTER 2019-05-16 12:04 | Inpatient (IN) | payer MEDICARE, OTHER ==
[~2019-05-16] VITALS: Ht 170.2 cm; Wt 51.3 kg
[~2019-05-16 12:04] MED LIST changes: +METFORMIN HCL500 M1 ORAL; +QUETIAPINE FUM100 MG; +dilaudid PO
--- NOTE | 2019-05-16 12:15 | NUR ---
ED Nurse Note: PT BROUGHT IN BY [phone] FROM HOME DUE TO POSTOPERATIVE BACK PAIN AND POSSIBLE INFECTION. SURGERY DATE: 02/21/19.
[2019-05-16] MEDS ORDERED: Ketorolac 30mg Inj IM ONE (12:45)
[2019-05-16 13:05] VITALS: BP 149/85
--- NOTE | 2019-05-16 13:23 | NUR ---
ED Nurse Note: PT observed calm, sleeping in bed prior to giving Toradol 30mg IM injection on R-gluteus max.
[2019-05-16] MEDS ORDERED: HYDROmorphone 2mg tab ORAL ONE (14:00)
--- NOTE | 2019-05-16 14:00 | Emergency Room Report ---
History of Present Illness General Chief Complaint: Back Pain-No Injury Source: EMS Present Illness HPI Disclaimer: Please note that this report is being documented using DRAGON technology. This can lead to erroneous entry secondary to incorrect interpretation by the dictating instrument. HPI: 69-year-old female with a history of severe spinal stenosis status post decompression surgery performed at [facility] this summer presents for evaluation of back pain. She also has a history of diabetes, hypertension, hyperlipidemia, osteoarthritis, bipolar disorder, chronic opiate dependency. Patient states that over the past 2 weeks she has had increased lower back pain that radiates in the back of the legs bilaterally. Today she found it difficult to ambulate because of severe pain. She is typically prescribed oxycodone and hydromorphone by her PMD but was unable to fill her prescriptions for this month because she was unable to get to her appointment. She denies any new trauma. Denies fevers, chills, skin breakdown, discharge, chest pain, shortness of breath or other changes in her health. Denies any new numbness or tingling in the lower extremities. She states she has chronic atrophy of the right leg and makes it difficult to ambulate at baseline though she was doing better when she had her chronic pain medications. She normally takes 2 mg of oral Dilaudid which she states is the only medication that relieves her pain. PMH: Hypertension, hyperlipidemia, dependency on opioids, diabetes, spinal stenosis, osteoarthritis, bipolar disorder PSH: Spinal decompression Allergies: Amoxicillin, codeine, Benadryl, methadone, penicillin, tetracycline noted in medical chart Social Hx: Tobacco use, opiate use Allergies: Coded Allergies: AMOXICILLIN (Verified Allergy, Unknown, RASH, 02/10/09) CODEINE (Verified Allergy, Unknown, RASH, 02/10/09) DIPHENHYDRAMINE (Verified Allergy, Unknown, 02/10/09) METHADONE (Unverified Allergy, Unknown, 05/16/19) PENICILLINS (Unverified Allergy, Unknown, 12/26/18) TETRACYCLINE (Verified Allergy, Unknown, 02/10/09) Patient History Now: No Nursing Documentation-PMH Past Medical History: No History, Except For Hx Hypertension: No Hx Pacemaker: No Hx Asthma: No Hx COPD: No Hx Diabetes: Yes Hx Cancer: No Hx Gastrointestinal Problems: Yes - hx gallstones Hx Dialysis: No Hx Neurological Problems: Yes Hx Cerebrovascular Accident: No Hx Seizures: No Hx Peripheral Neuropathy: Yes Hx Weakness: Yes Review of Systems All Other Systems: negative except mentioned in HPI Physical Exam Vital Signs Date Time Temp Pulse Resp B/P (MAP) Pulse Ox O2 Delivery O2 Flow Rate FiO2 05/16/19 11:46 98.2 98 18 138/97 (111) 97 Room Air General: Awake and alert, writhing in pain on the gurney HEENT: NC/AT. EOMI. Cardiovascular: Borderline tachycardia. S1 and S2 normal. No murmur appreciated Resp: Normal work of breathing. No cough, wheezing or crackles appreciated Abdomen: Abdomen is soft, nondistended. Nontender Skin: Intact. No abrasions, laceration or rash over the exposed skin MSK: Diffuse atrophy of all extremities, decreased bulk. Moving all extremities. No obvious deformity. Neuro: Awake and alert. Mentating appropriately. Back/Spine: No midline tenderness in the cervical, thoracic spine. The surgical incision scar over the lumbosacral region is clean dry and intact. Appears well-healed without evidence of surrounding cellulitis, abscess or keloid formation. There is no bleeding, no drainage. It is tender to palpation but there are no appreciable step-off or deformities. The patient has diffuse paraspinal tenderness as well as tenderness over the piriformis region and above the iliac crest in the mid scapular line. Medical Decision Making Diagnostic Impression: Primary Impression: Intractable back pain Additional Impression: Unable to ambulate ER Course 69-year-old female with a history of severe spinal stenosis who underwent surgical decompression surgery at [facility] several months ago presents for evaluation of worsening back pain after running out of her pain medications. According to cures report the patient last had hydromorphone 2 mg tablets filled on 04/01/2019 and oxycodone 27 mg on 04/04/2019 by the same provider. She states she was unable to make her April appointment and therefore ran out of her medications. The surgical scar appears clean dry and intact without signs of infection. She denies systemic signs of infection such as fever, chills, vomiting, diarrhea, certain fatigue. I explained to her that the emergency department can manage her pain acutely however we do not prescribe chronic pain medications. We will give her home dose of her medications and monitor for improvement. If she is able to ambulate she may be discharged as an outpatient with close follow-up with PMD however if not she may require admission for pain control. Reevaluation Time: 15:45 Last Vital Signs Date Time Temp Pulse Resp B/P (MAP) Pulse Ox O2 Delivery O2 Flow Rate FiO2 05/16/19 13:05 96.7 90 14 149/85 100 05/16/19 11:46 Room Air Reevaluation Impression Patient is received multiple rounds of Dilaudid and is still unable to ambulate. She is complaining of persistent back pain. She will be admitted for further treatment of intractable back pain. We will send screening labs including ESR and CRP but I have little clinical suspicion for infectious process at this time. Stable for admission to the floor. Disposition: ADMITTED INPATIENT Condition: Serious Referrals: NOT CHOSEN IPA/,REFERRING (PCP) Pradeep Stone MD May 16, 2019 14:00
--- NOTE | 2019-05-16 14:02 | NUR ---
ED Nurse Note: pt relates toradol did not relieve pain. pt remedicated as noted. pt with family here.
[2019-05-16] MEDS ORDERED: HYDROmorphone 1mg/ml Carpuject IVP ONE (14:45)
[2019-05-16 15:31] LABS: BASOPHILS % (AUTO) 0.8 % (0.0-2.0); EOSINOPHILS % (AUTO) 0.6 % (0.0-3.0); HEMATOCRIT 39.5 % (37.0-47.0); HEMOGLOBIN 12.6 G/DL (12.0-16.0); LYMPHOCYTES % (AUTO) 20.5 % (20.0-45.0); MEAN CORPUSCULAR VOLUME 84 FL (80-99); NEUTROPHILS % (AUTO) 73.1 % (45.0-75.0); PLATELET COUNT 252 K/UL (150-450); RED BLOOD COUNT 4.69 M/UL (4.20-5.40); RED CELL DISTRIBUTION WIDTH 15.7 % (11.6-14.8); WHITE BLOOD COUNT 8.1 K/UL (4.8-10.8)
--- NOTE | 2019-05-16 15:45 | NUR ---
ED Nurse Note: pt states no admission in past 30 days so does not meet admission swab screening criteria. pt with healed surgical scar noted to spinal area of back. no s/s infection or drainage noted.
[2019-05-16 15:46] LABS: ANION GAP 12 mmol/L (5-15); BLOOD UREA NITROGEN 7 mg/dL (7-18); CALCIUM 9.7 MG/DL (8.5-10.1); CARBON DIOXIDE 22 MMOL/L (21-32); CHLORIDE 110 MMOL/L (98-107); CREATININE 1.1 MG/DL (0.55-1.30); POTASSIUM 3.8 MMOL/L (3.5-5.1); SODIUM 144 MMOL/L (136-145)
[2019-05-16 15:50] LABS: ALANINE AMINOTRANSFERASE 16 U/L (12-78); ALBUMIN 3.7 G/DL (3.4-5.0); ALBUMIN/GLOBULIN RATIO 0.9 (1.0-2.7); ALKALINE PHOSPHATASE 157 U/L (46-116); ASPARTATE AMINO TRANSFERASE 15 U/L (15-37); BILIRUBIN,TOTAL 0.3 MG/DL (0.2-1.0)
[2019-05-16 15:56] VITALS: BP 135/85
[2019-05-16] MEDS ORDERED: HYDROMORPHONE HC2 M1 ORAL (17:28)
--- NOTE | 2019-05-16 17:29 | NUR ---
ED Nurse Note: report given to rn, awaiting pt. valueables sent with pt. pt a/ox4 upon transfer
--- NOTE | 2019-05-16 17:50 | NUR ---
NURSE NOTES: Received patient into room 414 bed 2,patient is awake and alert and oriented..Patient state she had back surgery in February of 2019.Incision to the back is intact,no drainage or redness at this time. Patient able to move lower extremities,pedal pulse are strong bilateral .Will notify DR Siddiqui of patient room number and for admitting ordersBed alarm is on,call light within reach. .
[2019-05-16] MEDS ORDERED: Morphine Sulfate 2mg/ml Inj(IV/IM USE ONLY) IVP PRN (18:30)
[2019-05-16] MEDS ORDERED: HYDROmorphone 1mg/ml Carpuject IVP PRN (18:30)
[2019-05-16] MEDS ORDERED: Morphine Sulfate 4mg/ml Inj (IV USE ONLY) IVP PRN (18:30)
[2019-05-16] MEDS ORDERED: Lactulose 10gm/15ml UDC ORAL PRN (18:45)
--- NOTE | 2019-05-16 19:30 | NUR ---
NURSE NOTES: Patient in bed, alert and oriented x4, not in acute respiratory distress. With complaint of moderate pain. Offered pain med but not at this time. Instructed to use call light. Call light in reach. Bed in lowest, lock engaged and alarm on. Will continue to monitor.
--- NOTE | 2019-05-16 19:34 | NUR ---
HAND-OFF: Report given to Claudia MELENDEZ.
[2019-05-16 20:00] VITALS: BP 108/59
[2019-05-16] MEDS: QUEtiapine 200mg tab ORAL SCH (20:15)
[2019-05-16] MEDS: clonazePAM 0.5mg tab ORAL SCH (20:16)
[2019-05-16] MEDS: Heparin 5000 units/ml inj SUBQ SCH (20:17)
[2019-05-16] MEDS ORDERED: Vitamin D 50,000 units cap ORAL SCH (21:00)
[2019-05-17] VITALS: BP 117/74
[2019-05-17 04:00] VITALS: BP 138/73
--- NOTE | 2019-05-17 07:17 | NUR ---
HAND-OFF: Report given to AL Ramos.
--- NOTE | 2019-05-17 07:26 | NUR ---
NURSE NOTES: Patient is awakeand alert and oriented,respirations unlabored.patient sitting up in bed and eating breakfast.Bed alarm is on,call light within reach.
[2019-05-17 08:00] VITALS: BP 122/80
[2019-05-17] MEDS: clonazePAM 0.5mg tab ORAL SCH ×2 (09:06→22:34)
[2019-05-17] MEDS: metFORMIN 500mg tab ORAL SCH ×2 (09:06→17:35)
[2019-05-17] MEDS: Heparin 5000 units/ml inj SUBQ SCH ×2 (09:09→22:36)
--- NOTE | 2019-05-17 10:53 | History & Physical ---
History and Physical History & Physicial History and Physical HPI: Patient is a 69-year-old female with a history of severe spinal stenosis status post decompression surgery performed at [facility] 2 months ago , admitted with severe back pain, ran out of her pain medication. She also has a history of diabetes, hypertension, hyperlipidemia, osteoarthritis, bipolar disorder, chronic opiate dependency. Patient states that over the past 2 weeks she has had increased lower back pain that radiates in the back of the legs bilaterally. Today she found it difficult to ambulate because of severe pain. She is typically prescribed oxycodone and hydromorphone, she normally takes 2 mg of oral Dilaudid. She denies any new trauma. Denies fevers, chills, skin breakdown, discharge, chest pain, shortness of breath or other changes in her health. Denies any new numbness or tingling in the lower extremities. She states she has chronic atrophy of the right leg and makes it difficult to ambulate at baseline though she was doing better when she had her chronic pain medications. which she states is the only medication that relieves her pain. PMH: Hypertension, hyperlipidemia, dependency on opioids, diabetes, peripheral neuropathy, spinal stenosis, osteoarthritis, bipolar disorder, gallstones PSH: Spinal decompression Allergies: Amoxicillin, codeine, Benadryl, methadone, penicillin, tetracycline noted in medical chart Social Hx: Tobacco use, opiate use Allergies: AMOXICILLIN (Verified Allergy, Unknown, RASH, 02/10/09) CODEINE (Verified Allergy, Unknown, RASH, 02/10/09) DIPHENHYDRAMINE (Verified Allergy, Unknown, 02/10/09) METHADONE (Unverified Allergy, Unknown, 05/16/19) PENICILLINS (Unverified Allergy, Unknown, 12/26/18) TETRACYCLINE (Verified Allergy, Unknown, 02/10/09) All Other Systems: negative except mentioned in HPI Physical Exam Vital Signs Noted General: Awake and alert, comfortable on pain meds HEENT: NC/AT. EOMI. Cardiovascular: Borderline tachycardia. S1 and S2 normal. No murmur appreciated Resp: Normal work of breathing. No cough, wheezing or crackles appreciated Abdomen: Abdomen is soft, nondistended. Nontender Skin: Intact. No abrasions, laceration or rash over the exposed skin MSK: Diffuse atrophy of all extremities, decreased bulk. Moving all extremities. No obvious deformity. Neuro: Awake and alert. Mentating appropriately. Back/Spine: No midline tenderness in the cervical, thoracic spine. The surgical incision scar over the lumbosacral region is clean dry and intact, tender to palpation, no deformity. 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
[2019-05-17 12:00] VITALS: BP 108/72
--- NOTE | 2019-05-17 13:03 | NUR ---
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
--- NOTE | 2019-05-17 14:07 | NUR ---
RD ASSESSMENT & RECOMMENDATIONS SEE CARE ACTIVITY FOR COMPLETE ASSESSMENT DAILY ESTIMATED NEEDS: Needs based on Underweight, DM / 52kg 30-35 kcals/kg 0232-4667 total kcals 1-1.5 g protein/kg 52-78 g total protein 25-30 mL/kg 9747-7272 total fluid mLs NUTRITION DIAGNOSIS: Underweight etiology unknown as evidenced by BMI underweight per guidelines, pt is 84% IBW. (CURRENT DIET: Regular) PO DIET RECOMMENDATIONS--> > CCHO LOW + High pro snacks in b/w meals ADDITIONAL RECOMMENDATIONS: * Glucerna 1 tetra stephanie BID * Obtain a calibrated bed scale wt * Weekly wt monitoring- underweight * A1C for eval of glycemic control- h/o DM BG 124 * On lactulose/ monitor hydration status and lytes
--- NOTE | 2019-05-17 15:47 | NUR ---
Social Service Note BARTOLOME very familiar with patient from previous admissions. Patient has a history of bipolar, PTSD, Disassociation disorder and narcotic dependence. Patient with chronic leg and back pain with previous surgeries. Patient ambulates short distances in her apartment. Patient is unable to ambulate down the 3 flights of stairs at her apartment complex. Complex doesn't have an elevator. BARTOLOME left a message for John Elmore [phone] to confirm he continues to visit/assist patient M-F. BARTOLOME spoke with Carie MELENDEZ who completes weekly visits through [facility] 1999 (p) [phone] (f). Per Carie Siddiqui will not refill patient's prescription for pain medication unless she is seen in the office. Carie states patient complains of constant pain. Carie believes patient has increased her marijuana use due to not have pain medication. Carie does see patient's friend Mr. Elmore when she visits. Patient's dgt's Jerilyn are not involved in patient's care. Patient has referred SNF placement previously. BARTOLOME has filed APS reports in the past. Currently no open APS case. Recommend PT eval/treatment. [facility] agreeable to continue to follow patient at home upon discharge. Will continue to monitor and assist as needed.
[2019-05-17 16:00] VITALS: BP_SYST 78
--- NOTE | 2019-05-17 17:30 | NUR ---
HAND-OFF: Report given to Lazarus MELENDEZ and Gina MELENDEZ.
--- NOTE | 2019-05-17 18:00 | NUR ---
NURSE NOTES: Patient resting,patient able to rest through the day,up with assist ,voiding without difficulty.Tolerating meals.Bed alarm on,call light within reach.
[2019-05-17] MEDS ORDERED: REMERON30 MG ORAL (19:13)
--- NOTE | 2019-05-17 19:56 | NUR ---
Patient is in bed,awake, alert and oriented. Breathing on room air. No acute distress or discomfort noted. IV site on left fore arm patent and intact. Fall precaution in place. Bed in low and locked position. Bed alarm is on. call light within reach. Instructed patient to use call light for for assistance. patient will be monitored.
[2019-05-17 20:00] VITALS: BP 132/74
--- NOTE | 2019-05-17 20:19 | NUR ---
hand off time 1930,not 1730
--- NOTE | 2019-05-17 21:05 | NUR ---
NURSE NOTES: Patient is in bed,awake, alert and oriented. Breathing on room air. No acute distress or discomfort noted. Pain medication will be given as ordered PRN. Fall precaution in place. Bed in low and locked position. Bed alarm is on. Call light within reach. Instructed patient to use call light for for assistance. patient will be monitored. Trainee, Gina ShipleyRN will be assisting in the care of this patient.
[2019-05-17] MEDS: QUEtiapine 200mg tab ORAL SCH (22:35)
[2019-05-18] VITALS: BP 129/81
--- NOTE | 2019-05-18 01:30 | NUR ---
NURSE NOTES: Patient is in bed, asleep. No c/o pain or discomfort at this time. Medications administered as ordered and assisted as needed.Bed in low and locked position Call light within reach. Patient will be monitored.
[2019-05-18 04:00] VITALS: BP 132/85
--- NOTE | 2019-05-18 07:10 | NUR ---
HAND-OFF: Report given to AL Menjivar.
--- NOTE | 2019-05-18 07:15 | NUR ---
NURSE NOTES: Received pt in bed, AAO x 4. Room air. No s/s of distress/pain at this time. IV on R FA 22g intact and patent, with saline lock. Side rails x 2. Bed in the lowest and locked. Call light within reach. Will continue to monitor
[2019-05-18 08:00] VITALS: BP 121/77
[2019-05-18] MEDS: clonazePAM 0.5mg tab ORAL SCH (08:59)
[2019-05-18] MEDS: metFORMIN 500mg tab ORAL SCH (08:59)
[2019-05-18] MEDS: Heparin 5000 units/ml inj SUBQ SCH (09:00)
--- NOTE | 2019-05-18 09:11 | General Progress Note ---
Assessment/Plan Assessment/Plan: (1) S/P Lumbar fusion (2) Lumbar radiculopathy (3) Lumbar spondylosis (4) Lumbar spinal stenosis Pt will be continued on Dilaudid Pt was d/w Dr. Mckeon and he concurred. Subjective Date patient seen: May 18, 2019 Time patient seen: 09:00 - am Allergies: Coded Allergies: AMOXICILLIN (Verified Allergy, Unknown, RASH, 02/10/09) CODEINE (Verified Allergy, Unknown, RASH, 02/10/09) DIPHENHYDRAMINE (Verified Allergy, Unknown, 02/10/09) METHADONE (Unverified Allergy, Unknown, 05/16/19) PENICILLINS (Unverified Allergy, Unknown, 12/26/18) TETRACYCLINE (Verified Allergy, Unknown, 02/10/09) Subjective Constitutional: Denies: no symptoms, chills, diaphoresis, fever, malaise, weakness, other HEENT: Denies: no symptoms, eye pain, blurred vision, tearing, double vision, ear pain, ear discharge, nose pain, nose congestion, throat pain, throat swelling, mouth pain, mouth swelling, other Cardiovascular: Denies: no symptoms, chest pain, edema, irregular heart rate, lightheadedness, palpitations, syncope, other Respiratory: Denies: no symptoms, cough, orthopnea, shortness of breath, SOB with excertion, SOB at rest, sputum, stridor, wheezing, other Gastrointestinal/Abdominal: Denies: no symptoms, abdomen distended, abdominal pain, black stools, tarry stools, blood in stool, constipated, diarrhea, difficulty swallowing, nausea, poor appetite, poor fluid intake, rectal bleeding , vomiting, other Genitourinary: Denies: no symptoms, burning, discharge, frequency, flank pain, hematuria, incontinence, pain, urgency, other Neurologic/Psychiatric: Reports: tingling, weakness Endocrine: Denies: no symptoms, excessive sweating, flushing, intolerance to cold, intolerance to heat, increased hunger, increased thirst, increased urine, unexplained weight gain, unexplained weight loss, other Hematologic/Lymphatic: Denies: no symptoms, anemia, easy bleeding, easy bruising, other Subjective Pt is a known patient from previous admissions. She has been admitted with c/o severe lower back pain. Reports that she had underwent lumbar fusion with Dr. Jessica at [facility] in February was sent to a SNF then discharged home. About 3 weeks ago ran out of her pain medication which was prescribed by Dr. Mishra for Xtampza and Dilaudid. Due to this was unable to tolerate the pain and has been admitted into the hospital. She was started on Dilaudid 1-2mg IV Q3H as needed and it has allowed her to tolerate the pain at this time. Patient is now contemplating switch back to Dr. Mckeno for continued oupt pain management. Objective Last 24 Hour Vital Signs Date Time Temp Pulse Resp B/P (MAP) Pulse Ox O2 Delivery O2 Flow Rate FiO2 05/18/19 08:00 97.1 91 19 121/77 (92) 97 05/18/19 04:00 97.8 95 19 132/85 (101) 97 05/18/19 00:00 97.5 107 19 129/81 (97) 97 05/17/19 21:00 Room Air 05/17/19 20:00 97.9 102 20 132/74 (93) 93 05/17/19 16:00 96.8 86 78/ 93 05/17/19 12:00 97.7 98 15 108/72 (84) 98 Intake and Output 05/17/19 05/18/19 18:59 06:59 Intake Total 600 ml 360 ml Balance 600 ml 360 ml Intake Oral 600 ml 360 ml # Voids 2 3 # Bowel Movements 3 Height (Feet): 5 Height (Inches): 7.00 Weight (Pounds): 113 Objective General Appearance: no apparent distress, alert EENT: PERRL/EOMI Neck: non-tender, supple Cardiovascular: normal rate, regular rhythm Respiratory/Chest: lungs clear, normal breath sounds Abdomen: non tender, soft Extremities: non-tender Edema: no edema noted Generalized Neurologic: alert, oriented Skin: warm/dry Sebastian Lea May 18, 2019 09:11
--- NOTE | 2019-05-18 09:55 | NUR ---
PT EVALUATION NOTE Patient seen for initial evaluation, see complete evaluation for details. Patient presents with impaired functional mobility due to weakness and pain. Patient requires min assist for bed mobility and transfers with FWW. Patient able to ambulate 25 ft with FWW and CGA, c/o fatigue after ambulation. Patient will benefit from skilled inpatient PT intervention to address strength, balance and safety to improve level of functional mobility and decrease risk of falls. Patient lives in a 4th floor apartment without elevator access. Recommend discharge to SNF for further rehab once medically cleared by MD. Patient appears to have necessary DME at home (has SPC, walker and motorized wheelchair). Addendum: 05/18/19 at 1103 by LILLIE LOPEZ PT Amended: Links added.
--- NOTE | 2019-05-18 10:13 | General Progress Note ---
Assessment/Plan Assessment/Plan: Intractable back pain, s/p surgical decompression surgery at [facility] several months ago Unable to ambulate Spinal Stenosis Chronic opiate dependency Diabetes Hypertension Hyperlipidemia Osteoarthritis Bipolar disorder PLAN stabilize pain PT pain MD dc planning in am home health on dc close outpatient follow up with pain MD discussed all issues avoid smoking impression, plan, and exam edited and reviewed in detail care discussed with RN Subjective Allergies: Coded Allergies: AMOXICILLIN (Verified Allergy, Unknown, RASH, 02/10/09) CODEINE (Verified Allergy, Unknown, RASH, 02/10/09) DIPHENHYDRAMINE (Verified Allergy, Unknown, 02/10/09) METHADONE (Unverified Allergy, Unknown, 05/16/19) PENICILLINS (Unverified Allergy, Unknown, 12/26/18) TETRACYCLINE (Verified Allergy, Unknown, 02/10/09) Subjective still in pain would like to change pain docs Objective Last 24 Hour Vital Signs Date Time Temp Pulse Resp B/P (MAP) Pulse Ox O2 Delivery O2 Flow Rate FiO2 05/18/19 09:00 Room Air 05/18/19 08:00 97.1 91 19 121/77 (92) 97 05/18/19 04:00 97.8 95 19 132/85 (101) 97 05/18/19 00:00 97.5 107 19 129/81 (97) 97 05/17/19 21:00 Room Air 05/17/19 20:00 97.9 102 20 132/74 (93) 93 05/17/19 16:00 96.8 86 78/ 93 05/17/19 12:00 97.7 98 15 108/72 (84) 98 Intake and Output 05/17/19 05/18/19 18:59 06:59 Intake Total 600 ml 360 ml Balance 600 ml 360 ml Intake Oral 600 ml 360 ml # Voids 2 3 # Bowel Movements 3 Height (Feet): 5 Height (Inches): 7.00 Weight (Pounds): 113 Objective WDWN NAD clear breath sounds bilaterally without rhonchi or wheeze [id number] without MRG NABS nontender no HSM no CCE nonfocal using walker pain better today Bennett Siddiqui MD May 18, 2019 10:13
--- NOTE | 2019-05-18 11:54 | Emergency Room Report ---
History of Present Illness General Chief Complaint: Back Pain-No Injury Source: EMS Present Illness Allergies: Coded Allergies: AMOXICILLIN (Verified Allergy, Unknown, RASH, 02/10/09) CODEINE (Verified Allergy, Unknown, RASH, 02/10/09) DIPHENHYDRAMINE (Verified Allergy, Unknown, 02/10/09) METHADONE (Unverified Allergy, Unknown, 05/16/19) PENICILLINS (Unverified Allergy, Unknown, 12/26/18) TETRACYCLINE (Verified Allergy, Unknown, 02/10/09) Patient History Now: No Nursing Documentation-PM Past Medical History: No History, Except For Hx Cardiac Problems: No Hx Hypertension: No Hx Pacemaker: No Hx Asthma: No Hx COPD: No Hx Diabetes: Yes - type 2 Hx Cancer: No Hx Gastrointestinal Problems: Yes Hx Dialysis: No Hx Neurological Problems: Yes Hx Cerebrovascular Accident: No Hx Seizures: No Hx Peripheral Neuropathy: Yes Hx Spinal Cord Injury: Yes - spinal surgery Hx Weakness: Yes Physical Exam Vital Signs Date Time Temp Pulse Resp B/P (MAP) Pulse Ox O2 Delivery O2 Flow Rate FiO2 05/16/19 11:46 98.2 98 18 138/97 (111) 97 Room Air Medical Decision Making Diagnostic Impression: Primary Impression: Intractable back pain Additional Impression: Unable to ambulate ER Course I was called to evaluate the patient for CODE BLUE. Patient was found unresponsive by LEATHER DRESSER. She had been placed on a campus monitor was undergoing CPR on my arrival. Patient had been noted to have had been admitted for back pain. She had been given medications as per code sheet without any return of spontaneous circulation. Patient was pronounced at 1129. Dr. Siddiqui was notified of patient's . Last Vital Signs Date Time Temp Pulse Resp B/P (MAP) Pulse Ox O2 Delivery O2 Flow Rate FiO2 05/18/19 09:00 Room Air 05/18/19 08:00 97.1 91 19 121/77 (92) 97 Disposition: ADMITTED INPATIENT Condition: Stable Referrals: NOT CHOSEN IPA/,REFERRING (PCP) Anuel Spann MD May 18, 2019 11:54
--- NOTE | 2019-05-18 11:55 | NUR ---
RESPIRATORY NOTE: RT arrived to room with compressions in progress by RN. Initiated Bag valve ventilation with 100% oxygen at 15L. ED MD arrived and intubated patient with an ETT tube size 7.5 with 24cm at the lip line. ETT tube was secured with a commercial holster. There was bilateral chest rise noted, bilateral breath sounds auscultated, etCO2 color change, and condensation in the ETT noted. Patient did not attain ROSC.
--- NOTE | 2019-05-18 14:11 | NUR ---
CODE BLUE: Patient was found unresponsive by the SILVER SOLUTION MIXER at 1059. Notified charge nurse and rapid Response was called by charge nurse. Upon returning to room, rapid response converted to code blue. Code blue initiated. Unable to reach ROSC. Dr. Siddiqui notified. Per Dr. Siddiqui, he notified daughter. See Code sheet which remains on paper.
--- NOTE | 2019-05-18 14:35 | NUR ---
NURSE NOTES: Patient found unresponsive by DECK STEWARD. Rapid response called. Rapid response became Code Blue upon returning to patient's room. Code Blue initiated. ROSC unsuccessful. Dr Siddiqui notified by primary RN.
--- NOTE | 2019-05-19 10:22 | Discharge Summary ---
Discharge Summary Discharge Summary _ SUMMARY DATE OF ADMISSION: 05/16/2019 DATE OF EXPIRATION: 05/18/2019 REASON FOR ADMISSION: 69 years old female with past medical history of hypertension, diabetes mellitus , hyperlipidemia, osteoarthritis, bipolar disorder, chronic opiate dependency, peripheral neuropathy , osteoarthritis, diabetes mellitus , severe spinal stenosis, status post decompression surgery, performed this summer at [facility], presented for evaluation of back pain. Patient reported that over the past 2 weeks she had increased lower back pain , radiating to the back of her legs bilaterally. Patient found IT difficult to ambulate due to severe pain. Patient typically prescribed oxycodone and hydromorphone by her primary medical doctor , but she was unable to fill the prescription this month, because she was unable to get to her appointment. Patient denied new trauma. She denied fever or chills. She denied chest pain or shortness of breath. She denied new numbness or tingling in her lower extremities. Patient had chronic atrophy of the right leg , which made it difficult to ambulate at the baseline . However she was doing better with pain medications. Upon evaluation vital signs were stable. Laboratory work-up revealed no leukocytosis, stable hemoglobin and hematocrit . ESR 21. Stable electrolytes and renal parameters. Glucose 124. Patient admitted for intractable back pain . CONSULTANTS: pain specialist Dr. Mckeon [facility] COURSE: Patient admitted to medical surgical floor. Pain management was provided as per pain specialist recommendation. Home medication resumed. Blood sugar was managed with metformin . Blood rpessure was monitored, remained stable. DVT prophylaxis provided. Pulse oximetry was stable on room air . Patient was working with physical therapist. Fall precaution maintained. Bowel regimen instituted. On [facility] was called. Patient was found unresponsive by [facility]. ACLS protocol initiated. Despite all resuscitation efforts , patient did not regain return of spontaneous circulation. Patient was pronounced at 11:29 AM 05/18/19 . Cause of : cardiopulmonary arrest FINAL DIAGNOSES: Status post cardiopulmonary arrest Intractable back pain/status post surgical decompression surgery at [facility] Severe spinal stenosis Lumbar radiculopathy Lumbar spondylosis Chronic opiate dependency Inability to ambulate Diabetes mellitus Hypertension Hyperlipidemia Osteoarthritis Bipolar disorder I have been assigned to dictate discharge summary for this account. I was not involved in the patient's management. Vane Garza NP May 19, 2019 10:22
== END 2019-05-18 11:29 | disposition expired | DRG 552 ==
LOC: EDBD 12:04 → EMR 12:42 → 4E 14:55 → EDBEDREQ 16:47
DX: M48.061 Spinal stenosis, lumbar region without neurogenic claudication (principal); F11.20 Opioid dependence, uncomplicated; M54.16 Radiculopathy, lumbar region; M47.896 Other spondylosis, lumbar region; Z88.6 Allergy status to analgesic agent; Z88.1 Allergy status to other antibiotic agents; Z88.0 Allergy status to penicillin; Z88.8 Allergy status to other drugs, medicaments and biological substances; Z98.1 Arthrodesis status; R26.2 Difficulty in walking, not elsewhere classified; E11.9 Type 2 diabetes mellitus without complications; I10 Essential (primary) hypertension; E78.5 Hyperlipidemia, unspecified; M19.90 Unspecified osteoarthritis, unspecified site; F31.9 Bipolar disorder, unspecified
CPT/HCPCS: 36415; 80053; 82962; 85025; 85651; 86140; 92950; 96372; 96374; 99285